=== PATIENT | male | born 1965 | race Two or more races ===

== ENCOUNTER 2025-04-12 17:48 | Inpatient (IN) | payer OTHER, SELFPAY ==
[2025-04-12] VITALS (8 sets, daily range): BP systolic 138–160; BP diastolic 82–114; PULSE 79–125; RESP 16–100; TEMP 36.9–37.4; O2SAT 85–99; BMI 29.2
--- NOTE | 2025-04-12 18:10 | XR_ITS ---
Examination: CT brain head without contrast. 2-D sagittal coronal reconstructions Date and time of exam:April 12, 2025, 1858 hours INDICATIONS: Altered mental status today CTDI: vol (mGy):43.8 DLP: (mGycm):854 Technique: Multiple CT axial sections of the brain have been obtained, 5 mm slice thickness. Contrast has not been administered. 2-D sagittal, coronal reconstructions have been obtained Low dose protocols were performed. One or more of the following dose reduction techniques were used; automated exposure control, adjustment of the mA and/or KV according to patient size, use of iterative reconstruction technique. Findings: No significant ventricular enlargement. Intra-axial or extra-axial hemorrhage density is not seen. No mass effect or midline shift Basal cisterns are not remarkable. Fourth ventricle is midline. Cranial vault intact. Impression: Negative for acute hemorrhage, mass effect or midline shift Advise clinical correlation and follow-up accordingly
[2025-04-12 19:53] LABS: Basophils # (Auto) 0.1 Thou/mm3 (0.0-0.2); Basophils % (Auto) 1 % (0-2.5); Eosinophils # (Auto) 0.0 Thou/mm3 (0.0-0.5); Eosinophils % (Auto) 0 % (0-10); Hematocrit 37.3 % (41.0-53.0); Hemoglobin 13.1 g/dL (13.5-16.0); Immature Granulocytes Auto 0.03 Thou/mm3 (0.00-0.00); Lymphocytes # (Auto) 1.6 Thou/mm3 (1.0-4.8); Lymphocytes % (Auto) 18 % (10-50); Mean Corpuscular HGB Conc 35.1 g/dl (31.0-37.0); Mean Corpuscular Hemoglobin 33.9 pg (25.0-35.0); Mean Corpuscular Volume 97 fL (80-100); Monocytes # (Auto) 1.3 Thou/mm3 (0.0-0.8); Monocytes % (Auto) 16 % (0-12); Neutrophils # (Auto) 5.6 Thou/mm3 (1.8-7.7); Neutrophils % (Auto) 65 % (37-80); Nucleated Red Blood Cell # 0.00 Thou/mm3 (0.00-0.00); Nucleated Red Blood Cell % 0 /100 WBC (0); Platelet Count 172 Thou/mm3 (140-440); RDW Standard Deviation 44.0 fL (35.1-43.9); Red Blood Count 3.86 Miln/mm3 (4.50-5.90); White Blood Count 8.6 Thou/mm3 (3.8-10.6)
[2025-04-12 20:11] LABS: INR 1.2 (0.9-1.3); Partial Thromboplastin Time 29.7 Seconds (22.0-36.0); Prothrombin Time 12.6 Seconds (9.0-12.2)
[2025-04-12 20:16] LABS: Alanine Aminotransferase 33 U/L (10-49); Albumin, Serum 4.1 gm/dL (3.5-5.0); Albumin/Globulin Ratio 1.0 (1.2-2.2); Alcohol, Blood Medical < 3.0 mg/dL (0-10.0); Alkaline Phosphatase 207 U/L (46-116); Anion Gap 13 (7-16); Aspartate Amino Transferase 96 U/L (0-34); BUN/Creatinine Ratio 13 Ratio (12-20); Bilirubin,Total 1.0 mg/dL (0.3-1.2); Blood Urea Nitrogen 8 mg/dL (9-23); Calcium 9.6 mg/dL (8.3-10.6); Calcium (Corrected) 9.6 mg/dL (8.5-10.1); Carbon Dioxide 24.3 mMol/L (20.0-31.0); Chloride 95 mMol/L (98-107); Creatinine (Component) 0.6 mg/dL (0.6-1.3); Estimated Creatinine Clearance 118.7 mL/min (>60); Globulin 4.3 gm/dL (2.3-3.5); Glucose 90 mg/dL (74-106); Magnesium 1.6 mg/dL (1.6-2.6); Osmolality,Calculated 262 (275-295); Potassium 3.6 mMol/L (3.4-5.1); Sodium 132 mMol/L (136-145); Total Protein 8.4 gm/dL (5.7-8.2); eGFR > 60 See Note
[2025-04-12] MEDS: DIAZEPAM INJ 5 MG/ML VIAL 2 ML IVP (20:16)
[2025-04-12] MEDS: SODIUM CHLORIDE 0.9% 1000 ML 1,000 ML 999 ML IV (20:16)
[2025-04-12 21:18] LABS: Collection Type, Urine Clean Catch
[2025-04-12] MEDS: DIAZEPAM INJ 5 MG/ML VIAL 2 ML 10 MG IVP (21:18)
[2025-04-12 21:37] LABS: Amphetamine/Methamp Scrn,U Negative (Negative); Barbiturate Screen,Urine Negative (Negative); Benzodiazepines Screen,Urine Negative (Negative); Benzoylecgonine Screen, Ur Negative (Negative); Bilirubin,Urine Negative (Negative); Blood,Urine Trace (Negative); Clarity,Urine Clear (Clear/Hazy); Color,Urine Colorless (Lt Yel-Yel); Culture Indicated,Urine Not Indicated; Fentanyl Screen,Urine Negative (Negative); Glucose, Urine Negative (Negative); Ketones,Urine Negative (Negative); Leukocyte Esterase,Urine Negative (Negative); Nitrite,Urine Negative (Negative); Opiate Screen,Urine Negative (Negative); PH,Urine 6.5 (5.0-7.0); Protein,Urine Negative (Neg - Trace); RBC,Urine < 1 /hpf (0-3); Specific Gravity,Urine 1.004 (1.001-1.035); Squamous Epithelial Cell,Urine < 1 /hpf (0-5); THC Screen,Urine Negative (Negative); Urobilinogen,Urine Negative mg/dL (0.0-1.0); WBC,Urine 1 /hpf (0-5)
[2025-04-12 21:37] LABS: Thyroid Stimulating Hormone 2.64 uIU/mL (0.55-4.78)
--- NOTE | 2025-04-12 22:27 | PD.EDALCOH ---
ED Alcohol RME/HPI General Chief Complaint: Alcohol Stated Complaint: ALCOHOL WITHDRAW Time Seen by Provider: 04/12/25 18:00 Source: patient Arrival date/time: 04/12/25 17:48 59-year-old male with no known medical history presents to the emergency room with a chief complaint of altered mental status, fusion, tremors. Per EMS the patient has been in detention for the last 2 days and is withdrawing from alcohol. Mode of arrival: ambulatory Limitations: no limitations Related Data Home Medications ?Medication ?Instructions ?Recorded ?Confirmed naproxen 500 mg tablet 500 mg PO Q6H PRN pain 04/13/25 04/13/25 Allergies Allergy/AdvReac Type Severity Reaction Status Date / Time No Known Drug Allergies Allergy Verified 04/12/25 19:55 Review of Systems Review of Systems Systems Reviewed: All systems reviewed, normal except as documented Constitutional Constitutional: Reports system reviewed and no additional complaints, except as documented, Denies fatigue, Denies fever(s), Denies headache(s) and Denies weakness Eyes Eyes: Reports system reviewed and no additional complaints, except as documented, Denies blurry vision and Denies change in vision ENT Ears, Nose, Mouth, and Throat: Reports system reviewed and no additional complaints, except as documented, Denies otalgia, Denies headache(s), Denies nasal congestion, Denies throat swelling and Denies vertigo Cardiovascular Cardiovascular: Reports system reviewed and no additional complaints, except as documented, Denies chest pain, Denies dyspnea and Denies dyspnea on exertion Respiratory Respiratory: Reports system reviewed and no additional complaints, except as documented, Denies chest congestion, Denies cough, Denies dyspnea, Denies dyspnea on exertion and Denies wheezing Gastrointestinal Gastrointestinal: Reports system reviewed and no additional complaints, except as documented, Denies abdominal pain, Denies cramping, Denies nausea and Denies vomiting Genitourinary Genitourinary: Reports system reviewed and no additional complaints, except as documented, Denies dysuria and Denies hematuria Musculoskeletal Musculoskeletal: Reports system reviewed and no additional complaints, except as documented and Denies back pain Integumentary/Breasts Skin/Breast: Reports system reviewed and no additional complaints, except as documented and Denies wounds Neurologic Neurologic: Reports system reviewed and no additional complaints, except as documented, Reports abnormal movements, Reports abnormal speech, Reports behavioral changes, Reports confusion, Denies headache(s), Denies lack of coordination, Reports other visual disturbances, Reports tremor(s), Denies vertigo and Denies weakness Psychiatric Psychiatric: Reports system reviewed and no additional complaints, except as documented, Denies anxiety, Reports auditory hallucinations, Reports behavioral changes, Reports confusion, Denies depression, Reports irritability, Denies paranoia, Denies suicidal ideation and Reports tactile hallucinations Endocrine Endocrine: Reports system reviewed and no additional complaints, except as documented and Denies fatigue Hematologic/Lymphatic Hematologic/Lymphatic: Reports system reviewed and no additional complaints, except as documented and Denies lymphadenopathy Allergic/Immunologic Allergic/Immunologic: Reports system reviewed and no additional complaints, except as documented, Denies throat swelling, Denies urticaria and Denies wheezing ED Exam General Limitations: Present no limitations General appearance: Present alert and in no apparent distress Head Head exam: Present atraumatic Eye Eye exam: Present normal appearance, PERRL and EOMI ENT ENT exam: Present normal exam, normal oropharynx and mucous membranes moist Neck Neck exam: Present normal inspection, full ROM and trachea midline Chest Chest inspection: Present normal inspection and symmetric chest wall rise Respiratory Respiratory exam: Present normal lung sounds bilaterally Cardiovascular Cardiovascular exam: Present regular rate, normal rhythm and normal heart sounds Abdominal Exam Abdominal exam: Present soft and normal bowel sounds Extremities Exam Extremities exam: Present normal inspection and full ROM Back Exam Back exam: Present normal inspection and full ROM Neurological Exam Neurological exam: Present alert, oriented X3 and CN II-XII intact Psychiatric Psychiatric exam: Present normal affect and normal mood Skin Skin exam: Present warm, dry, intact and normal color Course Quality Measures none Orders Category Date Time Status Patient Condition Routine Admission 04/12/25 22:52 Ordered COVID-19 Screening Questionnaire NOW Care 04/12/25 22:23 Completed COVID-19 Screening Questionnaire NOW Care 04/12/25 22:43 Completed Decision to Admit X1 Care 04/12/25 22:23 Completed Decision to Admit X1 Care 04/12/25 22:43 Completed In and Out Catheter X1 Care 04/12/25 20:38 Completed Insert IV NOW Care 04/12/25 20:[address] head/brain wo con Stat Exams 04/12/25 18:10 Completed Alcohol, Blood Medical Stat Lab 04/12/25 19:39 Completed CBC Stat Lab 04/12/25 19:39 Completed CMP [Comprehensive Metabolic Panel] Stat Lab 04/12/25 19:39 Completed Drug Screen,Urine Stat Lab 04/12/25 20:51 Completed Mag [Magnesium] Stat Lab 04/12/25 19:39 Completed PT [Prothrombin Time with INR] Stat Lab 04/12/25 19:39 Completed PTT [Partial Thromboplastin Time] Stat Lab 04/12/25 19:39 Completed Phosphorous Stat Lab 04/12/25 19:39 Completed TSH [Thyroid Stimulating Hormone] Stat Lab 04/12/25 19:34 Completed UA, C/S IF [Urinalysis, C/S if Indicated] Stat Lab 04/12/25 20:51 Completed Acetaminophen Supp [Tylenol Supp] Med 04/12/25 22:52 Active 650 mg AK Q4HR PRN Diazepam Inj [Valium Inj] Med 04/12/25 20:43 Discontinued 10 mg IVP X1 ONE Diazepam Inj [Valium Inj] Med 04/12/25 20:03 Discontinued 5 mg IVP X1 ONE Folic Acid Inj Med 04/12/25 22:39 Discontinued 1 mg IVP X1 ONE Milk Of Magnesia Susp [Mom Susp] Med 04/12/25 22:52 Active 30 ml PO QDAY PRN PHENobarbital Inj 750 mg Med 04/12/25 22:30 Discontinued Sodium Chloride 0.9% [Ns] 50 ml IV X1 PHENobarbital Inj 750 mg Med 04/12/25 21:42 Discontinued Syringe For IV Med- Peds [Syringe Iv Carrier- Peds] 1 ea IV X1 Sodium Chloride 0.9% 1000 ml [Ns] 1,000 ml Med 04/12/25 20:04 Discontinued IV 999 mls/hr Thiamine Inj [Vitamin B-1 Inj] Med 04/12/25 22:39 Discontinued 100 mg IVP X1 ONE Thiamine Inj [Vitamin B-1 Inj] 250 mg Med 04/12/25 22:40 Discontinued Sodium Chloride 0.9% [Ns] 100 ml IV X1 Code Status Routine Oth 04/12/25 22:52 Ordered Oxygen Delivery PRN RT 04/12/25 22:52 Completed Vital Signs Vital signs: Vital Signs Temperature 99.4 F 04/12/25 18:10 Pulse Rate 79 04/12/25 18:10 Respiratory Rate 16 04/12/25 18:10 Blood Pressure 138/82 H 04/12/25 18:10 Pulse Oximetry (%) 97 04/12/25 18:10 Oxygen Delivery Method Room Air 04/12/25 18:10 Discharge Plan Plan Patient Disposition: Admit Acute Care w/in Hospital Problem List Clinical Impression: Delirium tremens Alcohol MDM Narrative MDM Narrative: 59-year-old male with no known medical history presents to the emergency room with a chief complaint of altered mental status, fusion, tremors. Per EMS the patient has been in detention for the last 2 days and is withdrawing from alcohol. Patient is hemodynamically stable Physical examination shows the patient was altered and confused. The patient is alert to his name but does not know where he is. Patient is a GCS of 14. the patient is having tremors, is confused and is having visual and auditory hallucinations. The patient is restrained with handcuffs as he is from detention and was brought due to his confusion and delirium and tremors. According to the EMS the patient is withdrawing from alcohol. The patient has been in detention for the last 2 days and has not drank any alcohol. The patient is currently in delirium tremens. He is having visual and auditory hallucinations he is diaphoretic and he is having episodes of confusion. The patient has been given diazepam with minimal improvement to his symptoms. The patient was then put on phenobarbital with improvement to his symptoms. The patient was admitted. The ICU team, Dr. Ellis, was called they will came down and evaluated the patient and the patient will be admitted to the ICU Patient data External records reviewed:: [facility] previous records Clinical information provided by:: patient Social determinants that could affect healthcare access:: none Patient has the following chronic illnesses:: No chronic illness How is presenting disease/condition affected by chronic disease/condition?: no chronic disease Evaluation data The following diagnostics were reviewed and interpreted by me:: lab results and radiology exam(s) Lab and/or radiology exams considered but not ordered:: Labs and radiology exams considered in order Interpretation Summary: CT head and brain-indings: No significant ventricular enlargement. Intra-axial or extra-axial hemorrhage density is not seen. No mass effect or midline shift Basal cisterns are not remarkable. Fourth ventricle is midline. Cranial vault intact. Impression: Negative for acute hemorrhage, mass effect or midline shift Advise clinical correlation and follow-up accordingly Medications / Prescriptions Medications or Prescriptions considered but not ordered:: Medication given Medication administrations:: Medication Administration History Acetaminophen (Acetaminophen Supp 650 Mg Supp) 650 mg AK Q4HR PRN PRN Reason: PAIN SCALE 1-3 (mild Stop: 05/12/25 22:51 Acetaminophen (Acetaminophen 325 Mg Tablet) 650 mg PO Q4HR PRN PRN Reason: PAIN SCALE 1-3 (mild Stop: 05/14/25 10:40 Last Admin: 04/15/25 05:40 Dose: 650 mg Documented By: Comments: for headache Dextrose (Dextrose 50%-Water Inj 50 Ml Syringe) 50 ml IVP Q6HR PRN PRN Reason: Blood sugar less than 80 Stop: 05/13/25 00:44 Diazepam (Diazepam Inj 5 Mg/Ml Vial 2 Ml) 5 mg IVP Q1HR PRN PRN Reason: CIWA 16-19 Stop: 04/17/25 23:25 Diazepam (Diazepam Inj 5 Mg/Ml Vial 2 Ml) 10 mg IVP Q1HR PRN PRN Reason: CIWA 20-25 Stop: 04/17/25 23:25 Last Admin: 04/13/25 00:17 Dose: 10 mg Documented By: BD Diazepam (Diazepam Inj 5 Mg/Ml Vial 2 Ml) 5 mg IVP Q15M PRN PRN Reason: RASS+1 Stop: 04/17/25 23:25 Diazepam (Diazepam Inj 5 Mg/Ml Vial 2 Ml) 2.5 mg IVP Q2HR PRN PRN Reason: CIWA SCORE 8-13 Stop: 04/18/25 00:42 Folic Acid (Folic Acid Inj 1 Mg/0.2 Ml) 1 mg IVP QDAY [facility] Stop: 05/13/25 08:59 Last Admin: 04/14/25 10:00 Dose: 1 mg Documented By: Admin: 04/13/25 08:49 Dose: 1 mg Documented By: JOAQUIN Heparin Sodium (Porcine) (Heparin Sod Inj 5000 Unit/Ml Vial) 5,000 unit SC Q8HR [facility] Stop: 04/27/25 05:59 Last Admin: 04/15/25 05:25 Dose: 5,000 unit Documented By: Co-signed By: KATHARINA Admin: 04/14/25 22:12 Dose: 5,000 unit Documented By: Co-signed By: CARL Admin: 04/14/25 13:44 Dose: 5,000 unit Documented By: ALEIDA Co-signed By: FARHANA Admin: 04/14/25 06:45 Dose: 5,000 unit Documented By: GERMAINE Co-signed By: NAY Admin: 04/13/25 21:30 Dose: 5,000 unit Documented By: GERMAINE Co-signed By: NAY Admin: 04/13/25 14:03 Dose: 5,000 unit Documented By: Co-signed By: DANIEL Admin: 04/13/25 05:41 Dose: 5,000 unit Documented By: PRUDENCIO Co-signed By: ABRIL Thiamine HCl 500 mg/ Sodium (Chloride) 105 mls @ 210 mls/hr IV TID STEFANIA Stop: 04/20/25 13:59 Last Admin: 04/15/25 05:20 Dose: 210 mls/hr Documented By: Infusion: 04/14/25 22:46 Dose: Infused Documented By: Admin: 04/14/25 22:16 Dose: 210 mls/hr Documented By: Infusion: 04/14/25 14:15 Dose: Infused Documented By: Admin: 04/14/25 13:45 Dose: 210 mls/hr Documented By: Infusion: 04/14/25 07:06 Dose: Infused Documented By: Admin: 04/14/25 06:36 Dose: 210 mls/hr Documented By: Infusion: 04/13/25 21:45 Dose: Infused Documented By: Admin: 04/13/25 21:15 Dose: 210 mls/hr Documented By: Infusion: 04/13/25 14:33 Dose: Infused Documented By: Admin: 04/13/25 14:03 Dose: 210 mls/hr Documented By: Potassium Phosphate (Pot Phos 15 Mmol In Ns 250 Ml) 15 mmol in 250 mls @ 62.5 mls/hr IV X1 ONE Stop: 04/15/25 12:42 Magnesium Sulfate (Magnesium Sulfate Ivpb) 2 gm in 50 mls @ 25 mls/hr IV X1 ONE Stop: 04/15/25 10:42 Last Admin: 04/15/25 09:00 Dose: 25 mls/hr Documented By: LILLIE Magnesium Hydroxide (Milk Of Magnesia Susp 30 Ml Udc) 30 ml PO QDAY PRN PRN Reason: CONSTIPATION Stop: 05/12/25 22:51 Pantoprazole Sodium (Pantoprazole Inj 40 Mg Vial) 40 mg IVP QDAY STEFANIA Stop: 05/12/25 22:59 Last Admin: 04/15/25 09:01 Dose: 40 mg Documented By: Admin: 04/14/25 09:14 Dose: 40 mg Documented By: Admin: 04/13/25 08:48 Dose: 40 mg Documented By: Admin: 04/12/25 23:15 Dose: 40 mg Documented By: BD Phenobarbital Sodium (Phenobarbital Inj 130 Mg/1 Ml Vial) 65 mg IVP BID STEFANIA Stop: 04/29/25 20:59 Discontinued Medications Phenobarbital Sodium 130 mg/ (Sodium Chloride 12 ml) 0 mg IVP Q8H STEFANIA Stop: 04/27/25 07:14 Last Admin: 04/13/25 06:23 Dose: 130 mg Documented By: PRUDENCIO Comments: with 12ml ns flush Phenobarbital Sodium 65 mg/ (Sodium Chloride 12 ml) 0 mg IVP Q8H [facility] Stop: 04/27/25 13:29 Phenobarbital Sodium 65 mg/ (Sodium Chloride 12 ml) 0 mg IVP Q8HR STEFANIA Stop: 04/27/25 21:59 Diazepam (Diazepam Inj 5 Mg/Ml Vial 2 Ml) 5 mg IVP X1 ONE Stop: 04/12/25 20:04 Last Admin: 04/12/25 20:16 Dose: 5 mg Documented By: BD Diazepam (Diazepam Inj 5 Mg/Ml Vial 2 Ml) 10 mg IVP X1 ONE Stop: 04/12/25 20:44 Last Admin: 04/12/25 21:18 Dose: 10 mg Documented By: BD Folic Acid (Folic Acid Inj 1 Mg/0.2 Ml) 1 mg IVP X1 ONE Stop: 04/12/25 22:40 Last Admin: 04/12/25 23:15 Dose: 1 mg Documented By: BD Sodium Chloride (Ns) 1,000 mls @ 999 mls/hr IV .Q1H1M ONE Stop: 04/12/25 21:04 Last Infusion: 04/12/25 23:05 Dose: Infused Documented By: Admin: 04/12/25 20:16 Dose: 999 mls/hr Documented By: BD Phenobarbital Sodium 750 mg/ (Device) 5.7692 mls @ 11.538 mls/hr IV X1 ONE Stop: 04/12/25 21:43 Last Admin: 04/12/25 22:21 Dose: Not Given Documented By: BD Non-Admin Reason: Discontinued Phenobarbital Sodium 750 mg/ (Sodium Chloride) 55.7692 mls @ 334.615 mls/hr IV X1 ONE Stop: 04/12/25 22:39 Last Infusion: 04/12/25 23:16 Dose: Infused Documented By: Admin: 04/12/25 22:48 Dose: 334.615 mls/hr Documented By: BD Thiamine HCl 250 mg/ Sodium (Chloride) 102.5 mls @ 205 mls/hr IV X1 ONE Stop: 04/12/25 23:09 Last Infusion: 04/12/25 23:54 Dose: Infused Documented By: Admin: 04/12/25 23:15 Dose: 205 mls/hr Documented By: BD Dexmedetomidine/Sodium Chloride (Precedex Ivpb) 400 mcg in 100 mls @ 3.629 mls/hr IV .Q24H PRN; Protocol PRN Reason: Per PROTOCOL Stop: 05/12/25 23:25 Last Titration: 04/13/25 10:00 Dose: 0 mcg/kg/hr, 0 mls/hr Documented By: Titration: 04/13/25 09:00 Dose: 0.2 mcg/kg/hr, 3.629 mls/hr Documented By: Titration: 04/13/25 08:00 Dose: 0.4 mcg/kg/hr, 7.258 mls/hr Documented By: Titration: 04/13/25 07:00 Dose: 0.6 mcg/kg/hr, 10.886 mls/hr Documented By: Titration: 04/13/25 06:13 Dose: 0.6 mcg/kg/hr, 10.886 mls/hr Documented By: KAShad Titration: 04/13/25 05:40 Dose: 0.4 mcg/kg/hr, 7.258 mls/hr Documented By: Titration: 04/13/25 05:00 Dose: 0.2 mcg/kg/hr, 3.629 mls/hr Documented By: Titration: 04/13/25 04:00 Dose: 0.2 mcg/kg/hr, 3.629 mls/hr Documented By: Titration: 04/13/25 03:20 Dose: 0.2 mcg/kg/hr, 3.629 mls/hr Documented By: Titration: 04/13/25 03:00 Dose: 0.4 mcg/kg/hr, 7.258 mls/hr Documented By: Titration: 04/13/25 02:00 Dose: 0.4 mcg/kg/hr, 7.258 mls/hr Documented By: Titration: 04/13/25 01:11 Dose: 0.4 mcg/kg/hr, 7.258 mls/hr Documented By: Admin: 04/13/25 00:41 Dose: 0.2 mcg/kg/hr, 3.629 mls/hr Documented By: ALYX Co-signed By: TESSY Magnesium Sulfate (Magnesium Sulfate Ivpb) 4 gm in 50 mls @ 12.5 mls/hr IV X1 ONE Stop: 04/13/25 03:30 Last Admin: 04/13/25 00:04 Dose: 12.5 mls/hr Documented By: ALYX Potassium Chloride (Kcl Ivpb) 10 meq in 100 mls @ 100 mls/hr IV Q1H STEFANIA Stop: 04/13/25 03:30 Last Admin: 04/13/25 03:47 Dose: 100 mls/hr Documented By: Infusion: 04/13/25 03:46 Dose: Infused Documented By: Admin: 04/13/25 02:46 Dose: 100 mls/hr Documented By: Infusion: 04/13/25 02:46 Dose: Infused Documented By: Admin: 04/13/25 01:51 Dose: 100 mls/hr Documented By: Infusion: 04/13/25 01:05 Dose: Infused Documented By: Admin: 04/13/25 00:05 Dose: 100 mls/hr Documented By: ALYX Potassium Chloride (Kcl Ivpb) 10 meq in 100 mls @ 100 mls/hr IV Q1H STEFANIA Stop: 04/13/25 10:20 Last Admin: 04/13/25 10:03 Dose: 100 mls/hr Documented By: Infusion: 04/13/25 09:44 Dose: Infused Documented By: Admin: 04/13/25 08:44 Dose: 100 mls/hr Documented By: JOAQUIN Magnesium Sulfate/Dextrose (Magnesium Sulfate Ivpb) 1 gm in 100 mls @ 100 mls/hr IV X1 ONE Stop: 04/14/25 09:20 Last Admin: 04/14/25 09:14 Dose: 100 mls/hr Documented By: ALEIDA Phenobarbital Sodium (Phenobarbital Inj 130 Mg/1 Ml Vial) 65 mg IVP Q8H STEFANIA Stop: 04/27/25 13:44 Last Admin: 04/13/25 14:10 Dose: Not Given Documented By: Non-Admin Reason: HOLD PER MD PONCE Phenobarbital Sodium (Phenobarbital Inj 130 Mg/1 Ml Vial) 65 mg IVP Q8HR STEFANIA Stop: 04/27/25 21:59 Last Admin: 04/15/25 05:25 Dose: 65 mg Documented By: Admin: 04/14/25 22:13 Dose: 65 mg Documented By: Admin: 04/14/25 13:44 Dose: 65 mg Documented By: Admin: 04/14/25 06:36 Dose: 65 mg Documented By: GERMAINE Comments: 65 mg wasted with PEDRO Mattson Admin: 04/13/25 21:13 Dose: 65 mg Documented By: GERMAINE Comments: 65 MG wasted with Nadiya VASQUEZ Potassium Chloride (Potassium Chloride 20 Meq Tabcr) 40 meq PO X1 ONE Stop: 04/14/25 08:21 Last Admin: 04/14/25 09:13 Dose: 40 meq Documented By: ALEIDA Thiamine HCl (Thiamine Inj 100 Mg/Ml Vial 2 Ml) 100 mg IVP X1 ONE Stop: 04/12/25 22:40 Last Admin: 04/12/25 23:14 Dose: 100 mg Documented By: ALYX Thiamine HCl (Thiamine Inj 100 Mg/Ml Vial 2 Ml) 100 mg IVP BID STEFANIA Stop: 05/13/25 08:59 Last Admin: 04/13/25 08:45 Dose: 100 mg Documented By: JOAQUIN Thiamine HCl (Thiamine Inj 100 Mg/Ml Vial 2 Ml) 500 mg IVP TID [facility] Stop: 05/13/25 13:59 Medication given Consultations Consultation(s) initiated? (list below): No Diagnosis Differential diagnosis alcohol: alcohol withdrawal delirium, hypomagnesemia, alcohol intoxication, alcohol ketoacidosis, alcohol withdrawal syndrome and other (Delirium tremens) Most likely diagnosis given after review of the tests above:: Delirium tremens Admission Indicated Admission indicated?: indicated Admission Request Was there a request for admission?: Yes Admission Attestation Admission request attestation: Discussed case with [Dr. Ellis] from Hospitalist service regarding admission. Discussed patients ED course, exam findings, labs, and radiology results. The Hospitalist [agrees,declines] to accept the patient for admission. Disposition Plan Disposition Plan: Admit
[2025-04-12] MEDS: SODIUM CHLORIDE 0.9% IV (22:48)
[2025-04-12] MEDS: PHENOBARBITAL IV (22:48)
--- NOTE | 2025-04-12 22:54 | XR_ITS ---
Examination: AP chest single view Technique one AP portable upright chest single view Date and time: April 12, 2025, 11:47 PM INDICATIONS: Altered mental status tremors alcohol withdrawal FINDINGS: Normal heart size No pneumonia or pulmonary edema. Mild osteopenia IMPRESSION: No active disease
--- NOTE | 2025-04-12 23:00 | EKG_ITS ---
[facility] Test Date: 2025-04-12 Pat Name: TAMMIE CARDOSO Department: Room: - Gender: Male Loan Clerk: : 1965 Requested By: Nolberto Ellis Order Number: [id number] Reading MD: Nolberto Ellis Measurements Intervals [place] Rate: 91 P: 65 [place]: 151 QRS: 55 QRSD: 80 T: 70 QT: 364 QTc: 448 Interpretive Statements SINUS RHYTHM No previous ECG available for comparison /store/S0/[id number]/[id number]
[2025-04-12 23:08] LABS: Phosphorous 4.3 mg/dL (2.4-5.1)
--- NOTE | 2025-04-12 23:10 | PC.NURSE ---
aware that cant perform ekg as pt is still to restless
[2025-04-12] MEDS: THIAMINE INJ 100 MG/ML VIAL 2 ML IVP (23:14)
[2025-04-12] MEDS: FOLIC ACID INJ 1 MG/0.2 ML IVP (23:15)
[2025-04-12] MEDS: THIAMINE INJ 250 MG in SODIUM CHLORIDE 0.9% 100 ML 205 MG IV (23:15)
--- NOTE | 2025-04-12 23:31 | ESHP_ITS ---
<Statement entered by Filiberto Fulton MD - 04/13/25 12:10> I have discussed and was present for the essential components of the history, physical examination, diagnosis, and treatment plan with the resident. I agree with the patient's care as documented by the resident and amended herein by me. Filiberto Fulton MD FACP. Total critical care time: Approximately?45?minutes Due to a high probability of clinically significant, life threatening deterioration, the patient required my highest level of preparedness to intervene emergently and I personally spent this critical care time directly and personally managing the patient. This critical care time included obtaining a history; examining the patient; pulse oximetry; ordering and review of studies; arranging urgent treatment with development of a management plan; evaluation of patient's response to treatment; frequent reassessment; and, discussions with other providers. This critical care time was performed to assess and manage the high probability of imminent, life-threatening deterioration that could result in multi-organ failure. It was exclusive of separately billable procedures and treating other patients and teaching time. Documentation for date of: 04/12/25 HPI History of Present Illness History of present illness: The patient is a 59-year-old male with past medical history significant for alcohol abuse disorder, with unknown other medical history, presented to ED from senior living by EMS with chief complaint of decreased mental status, confusion and tremors. According to the officer from senior living, the patient was withdrawing from alcohol for past 2 days. Unable to obtain the patient's last drink time and date. Patient is not responding verbally, and is not answering questions appropriately. Initial CIWA score was 18, followed by 20. In the ED his vitals were significant for blood pressure 138/82, pulse 79, RR 16, temperature 99.4, saturating 97% on room air. Labs revealed hemoglobin 13.1, PT 12.6, sodium 132, chloride 95, BUN/creatinine 8/0.6, AST/ALT/ALP 96/33/207, TSH 2.64, UA revealed negative urinalysis, U tox was negative for any drug or alcohol. CT head was negative for acute hemorrhage, mass effect or midline shift, chest x-ray revealed no active disease, EKG as interpreted by me revealed sinus rhythm with QTc 448 MS. The patient was given diazepam 5 Mg IVP x 1, 10 Mg IVP x 1, thiamine 100 Mg IVP x 1, normal saline 1 L IV bolus, phenobarbital 750 Mg IV x 1, folic acid 1 Mg IV x 1, pantoprazole 40 Mg IV x 1, magnesium sulfate 4 g IV x 1, potassium chloride 40 mEq x 1 and was admitted to ICU for further management of alcohol withdrawal leading to delirium tremens. PMH: Unobtainable Surgical history: Unobtainable Family history: Unobtainable Social history: Presented from senior living, no further social history could be obtained Medications: To be reconciled Allergies: No known allergies Review of Systems Review of Systems ROS Unobtainable: unobtainable due to mental status Narrative Review of Systems: General: No acute distress, alert and oriented x 0, noncoherent speech, severe shaking in limbs HEENT: Moist mucous membranes, oropharynx clear Neck: Supple, No masses, No JVD CVS: S1S2 Regular rate and rhythm, No murmurs, rubs or gallops Lungs: Clear to auscultation with no accessory use, no wheeze no rhonchi Abd: Soft, NT/ND, +BS, no organomegaly Ext: No edema, warm and well perfused Skin: No rash Psych: Seems to be in auditory hallucinations Exam Vital Signs Temp Pulse Resp BP Pulse Ox O2 Del Method 98.5 F 120 H 16 146/94 H 99 Room Air 04/12/25 22:37 04/12/25 23:06 04/12/25 23:06 04/12/25 22:37 04/12/25 22:37 04/12/25 22:37 Results: Labs 04/13/25 06:03 04/13/25 06:55 Labs: Short CBC 04/12/25 Range/Units 19:39 WBC 8.6 (3.8-10.6) Thou/mm3 Hgb 13.1 L (13.5-16.0) g/dL Hct 37.3 L (41.0-53.0) % Plt Count 172 (140-440) Thou/mm3 BMP 04/12/25 19:39 Sodium 132 L Potassium 3.6 Chloride 95 L Carbon Dioxide 24.3 BUN 8 L Creatinine 0.6 Glucose 90 Calcium 9.6 Liver Function 04/12/25 Range/Units 19:39 Total Bilirubin 1.0 (0.3-1.2) mg/dL AST 96 H (0-34) U/L ALT 33 (10-49) U/L Alkaline Phosphatase 207 H (46-116) U/L Albumin 4.1 (3.5-5.0) gm/dL Urine 04/12/25 Range/Units 20:51 Urine Color Colorless A (Lt Yel-Yel) Urine Clarity Clear (Clear/Hazy) Urine pH 6.5 (5.0-7.0) Ur Specific [place] 1.004 (1.001-1.035) Urine Protein Negative (Neg - Trace) Urine Glucose (UA) Negative (Negative) Quality Measures Quality Measures none Medications Home Medications and Allergies Allergies Allergy/AdvReac Type Severity Reaction Status Date / Time No Known Drug Allergies Allergy Verified 04/12/25 19:55 Visit Medications Acetaminophen (Acetaminophen Supp 650 Mg Supp) 650 mg SD Q4HR PRN PRN Reason: PAIN SCALE 1-3 (mild Stop: 05/12/25 22:51 Phenobarbital Sodium 130 mg/ (Sodium Chloride 12 ml) 0 mg IVP Q8H [facility] Stop: 04/27/25 07:14 Diazepam (Diazepam Inj 5 Mg/Ml Vial 2 Ml) 5 mg IVP Q1HR PRN PRN Reason: CIWA 16-19 Stop: 04/17/25 23:25 Diazepam (Diazepam Inj 5 Mg/Ml Vial 2 Ml) 10 mg IVP Q1HR PRN PRN Reason: CIWA 20- Stop: 04/17/25 23:25 Diazepam (Diazepam Inj 5 Mg/Ml Vial 2 Ml) 5 mg IVP Q15M PRN PRN Reason: RASS+1 Stop: 04/17/25 23:25 Folic Acid (Folic Acid Inj 1 Mg/0.2 Ml) 1 mg IVP QDAY [facility] Stop: 05/13/25 08:59 Heparin Sodium (Porcine) (Heparin Sod Inj 5000 Unit/Ml Vial) 5,000 unit SC Q8HR [facility] Stop: 04/27/25 05:59 Dexmedetomidine/Sodium Chloride (Precedex Ivpb) 400 mcg in 100 mls @ 3.629 mls/hr IV .Q24H PRN; Protocol PRN Reason: Per PROTOCOL Stop: 05/12/25 23:25 Magnesium Sulfate (Magnesium Sulfate Ivpb) 4 gm in 50 mls @ 12.5 mls/hr IV X1 ONE Stop: 04/13/25 03:30 Potassium Chloride (Kcl Ivpb) 10 meq in 100 mls @ 100 mls/hr IV Q1H [facility] Stop: 04/13/25 03:30 Magnesium Hydroxide (Milk Of Magnesia Susp 30 Ml Udc) 30 ml PO QDAY PRN PRN Reason: CONSTIPATION Stop: 05/12/25 22:51 Pantoprazole Sodium (Pantoprazole Inj 40 Mg Vial) 40 mg IVP QDAY [facility] Stop: 05/12/25 22:59 Last Admin: 04/12/25 23:15 Dose: 40 mg Thiamine HCl (Thiamine Inj 100 Mg/Ml Vial 2 Ml) 100 mg IVP BID [facility] Stop: 05/13/25 08:59 Discontinued Medications Diazepam (Diazepam Inj 5 Mg/Ml Vial 2 Ml) 5 mg IVP X1 ONE Stop: 04/12/25 20:04 Last Admin: 04/12/25 20:16 Dose: 5 mg Diazepam (Diazepam Inj 5 Mg/Ml Vial 2 Ml) 10 mg IVP X1 ONE Stop: 04/12/25 20:44 Last Admin: 04/12/25 21:18 Dose: 10 mg Folic Acid (Folic Acid Inj 1 Mg/0.2 Ml) 1 mg IVP X1 ONE Stop: 04/12/25 22:40 Last Admin: 04/12/25 23:15 Dose: 1 mg Sodium Chloride (Ns) 1,000 mls @ 999 mls/hr IV .Q1H1M ONE Stop: 04/12/25 21:04 Last Infusion: 04/12/25 23:05 Dose: Infused Phenobarbital Sodium 750 mg/ (Device) 5.7692 mls @ 11.538 mls/hr IV X1 ONE Stop: 04/12/25 21:43 Last Admin: 04/12/25 22:21 Dose: Not Given Phenobarbital Sodium 750 mg/ (Sodium Chloride) 55.7692 mls @ 334.615 mls/hr IV X1 ONE Stop: 04/12/25 22:39 Last Infusion: 04/12/25 23:16 Dose: Infused Thiamine HCl 250 mg/ Sodium (Chloride) 102.5 mls @ 205 mls/hr IV X1 ONE Stop: 04/12/25 23:09 Last Admin: 04/12/25 23:15 Dose: 205 mls/hr Thiamine HCl (Thiamine Inj 100 Mg/Ml Vial 2 Ml) 100 mg IVP X1 ONE Stop: 04/12/25 22:40 Last Admin: 04/12/25 23:14 Dose: 100 mg Assessment & Plan Plan The patient is a 59-year-old male with past medical history significant for alcohol abuse disorder, with unknown other medical history, presented to ED from senior living by EMS with chief complaint of decreased mental status, confusion and tremors. The patient is admitted to ICU for further management of alcohol withdrawal leading to delirium tremens. Neuro: #Acute encephalopathy 2/ #Alcohol withdrawal, and #Delirium tremens Patient presented from senior living, has been withdrawing for past 2 days in senior living, and presented with confusion, decreased mental status, and tremors U tox negative for any drug abuse Head CT negative for acute hemorrhage, mass effect or midline shift Received 750 Mg IV phenobarbital x 1 in the ED -Phenobarbital 130 Mg IV every 8 hourly, will taper down the dose as tolerated - Started on CIWA protocol with diazepam -Thiamine IV 100 Mg twice daily - Folic acid 1 Mg daily - N.p.o. for now - Aspiration precaution CVS: - No acute issues Pulmonology: - No acute issues GI: #Mild transaminitis Likely secondary to alcohol abuse disorder, presented with AST/ALT/ALP 96/33/207 - Monitor liver function test daily Renal: #Mild hypoosmolar hyponatremia Likely hypovolemic in the setting of withdrawing for past 2 days - Patient received 1 L of normal saline in the ED - Daily a.m. labs for BMP Endocrinology: - No acute issue Hematology: #Mild normocytic anemia Likely nutritional deficiency - Continue with folic acid daily - Follow-up as an outpatient ID: - No acute issues MSK: - No acute issues Skin: - No acute issues Psych: - Seem to be in auditory hallucination - Continue to treat underlying alcohol withdrawal Health maintenance: Dispo: Patient admitted to ICU for further management of delirium treatments Diet: N.p.o. Lines: Peripheral lines Sedatives: Precedex drip DVT prophylaxis: Subcu heparin CODE STATUS: Full code The patient's management plan was discussed with my attending physician MD Nolberto Fulton MD, PGY3
[2025-04-13] VITALS (71 sets, daily range): BP systolic 77–156; BP diastolic 49–98; PULSE 51–107; RESP 12–99; TEMP 2.9–37.3; O2SAT 89–100; BMI 29.0
[2025-04-13] MEDS: Magnesium Sulfate 4 GM Ivpb 4 GM/50 ML BAG IV (00:04)
[2025-04-13] MEDS: POTASSIUM CHL 10 mEq IVPB 10 MEQ/100 ML BAG 100 MEQ IV ×6 (00:05→10:03)
[2025-04-13] MEDS: DIAZEPAM INJ 5 MG/ML VIAL 2 ML 10 MG IVP (00:17)
--- NOTE | 2025-04-13 00:35 | PC.NURSE ---
pt is alert and calm pt is resting at this time holding precedex
[2025-04-13] MEDS: DEXMEDETOMIDINE 400 MCG IVPB 400 MCG/100 ML BAG IV (00:41)
[2025-04-13] MEDS: HEPARIN SOD INJ 5000 UNIT/ML VIAL SC ×3 (05:41→21:30)
[2025-04-13] MEDS: PHENobarbital Inj 130 MG, SODIUM CHLORIDE 0.9% FLUSH 12 ML IVP (06:23)
[2025-04-13 06:33] LABS: Basophils # (Auto) 0.0 Thou/mm3 (0.0-0.2); Basophils % (Auto) 1 % (0-2.5); Eosinophils # (Auto) 0.0 Thou/mm3 (0.0-0.5); Eosinophils % (Auto) 0 % (0-10); Hematocrit 44.7 % (41.0-53.0); Hemoglobin 15.2 g/dL (13.5-16.0); Immature Granulocytes Auto 0.01 Thou/mm3 (0.00-0.00); Lymphocytes # (Auto) 0.7 Thou/mm3 (1.0-4.8); Lymphocytes % (Auto) 14 % (10-50); Mean Corpuscular HGB Conc 34.0 g/dl (31.0-37.0); Mean Corpuscular Hemoglobin 33.9 pg (25.0-35.0); Mean Corpuscular Volume 100 fL (80-100); Monocytes # (Auto) 0.9 Thou/mm3 (0.0-0.8); Monocytes % (Auto) 18 % (0-12); Neutrophils # (Auto) 3.4 Thou/mm3 (1.8-7.7); Neutrophils % (Auto) 67 % (37-80); Nucleated Red Blood Cell # 0.00 Thou/mm3 (0.00-0.00); Nucleated Red Blood Cell % 0 /100 WBC (0); Platelet Count 139 Thou/mm3 (140-440); RDW Standard Deviation 45.1 fL (35.1-43.9); Red Blood Count 4.49 Miln/mm3 (4.50-5.90); White Blood Count 5.0 Thou/mm3 (3.8-10.6)
[2025-04-13 07:55] LABS: Alanine Aminotransferase 31 U/L (10-49); Albumin, Serum 3.8 gm/dL (3.5-5.0); Albumin/Globulin Ratio 1.1 (1.2-2.2); Alkaline Phosphatase 180 U/L (46-116); Anion Gap 13 (7-16); Aspartate Amino Transferase 99 U/L (0-34); BUN/Creatinine Ratio 13 Ratio (12-20); Bilirubin,Total 1.4 mg/dL (0.3-1.2); Blood Urea Nitrogen 8 mg/dL (9-23); Calcium 8.9 mg/dL (8.3-10.6); Calcium (Corrected) 9.1 mg/dL (8.5-10.1); Carbon Dioxide 24.9 mMol/L (20.0-31.0); Chloride 98 mMol/L (98-107); Creatinine (Component) 0.6 mg/dL (0.6-1.3); Estimated Creatinine Clearance 115.2 mL/min (>60); Globulin 3.4 gm/dL (2.3-3.5); Glucose 80 mg/dL (74-106); Magnesium 2.0 mg/dL (1.6-2.6); Osmolality,Calculated 269 (275-295); Phosphorous 3.6 mg/dL (2.4-5.1); Potassium 3.4 mMol/L (3.4-5.1); Sodium 136 mMol/L (136-145); Total Protein 7.2 gm/dL (5.7-8.2); eGFR > 60 See Note
[2025-04-13] MEDS: THIAMINE INJ 100 MG/ML VIAL 2 ML IVP (08:45)
[2025-04-13] MEDS: FOLIC ACID INJ 1 MG/0.2 ML IVP (08:49)
[2025-04-13] MEDS: THIAMINE INJ 500 MG in SODIUM CHLORIDE 0.9% 100 ML 210 MG IV ×2 (14:03→21:15)
--- NOTE | 2025-04-13 15:21 | ESPR_ITS ---
Documentation for date of: 04/13/25 Subjective Subjective Interval history: 04/13/2025 No acute overnight events. Precedex drip was stopped at 6 AM today. Patient received phenobarbital 130 mg at 6:23 AM. The next phenobarbital dose is 65 mg at 8 PM. Patient is alert and oriented x 2 however confused. Patient mentioned that he last drank 1 week ago and the last thing he remembers is being at his house and going to bed. He does not remember going to court yesterday and does not remember admission to hospital. He mentions that he drinks 4-5 beers every single day. Patient is having visual hallucinations and mentions that he sees cats in the room and is having tactile hallucinations and says that snakes are crawling on him patient says he has no medical problems and does not take any medications. Patient is stable and ready to be downgraded to the medical floor to for continued monitoring alcohol withdrawal. Exam Vital Signs Temp Pulse Resp BP Pulse Ox O2 Del Method O2 Flow Rate 98.3 F 56 L 16 106/76 99 Room Air 2 04/13/25 12:00 04/13/25 13:30 04/13/25 13:30 04/13/25 13:30 04/13/25 13:30 04/13/25 06:00 04/13/25 04:15 Narrative Exam General: No acute distress, alert and oriented x 2, [place]-speaking, no tremors HEENT: Moist mucous membranes, oropharynx clear, no nystagmus noted Neck: Supple, No masses, No JVD. CVS: S1+S2. Regular rate and rhythm. No murmurs, rubs or gallops. Lungs: Clear to auscultation with no accessory use, no wheeze no rhonchi Abd: Soft, NT/ND, +BS, no organomegaly Ext: No edema, warm and well perfused Skin: No rash. Bilateral lower extremity bruises below the knee. Psych: Visual and tactile hallucinations Objective Labs 04/16/25 04:51 04/16/25 04:51 Labs: Laboratory Results - last 24 hr 04/12/25 04/12/25 04/12/25 19:34 19:39 20:51 WBC 8.6 RBC 3.86 L Hgb 13.1 L Hct 37.3 L MCV 97 MCH 33.9 MCHC 35.1 RDW Std Deviation 44.0 H Plt Count 172 Neut % (Auto) 65 Lymph % (Auto) 18 [place] % (Auto) 16 H Eos % (Auto) 0 Baso % (Auto) 1 Neut # (Auto) 5.6 Lymph # (Auto) 1.6 [place] # (Auto) 1.3 H Eos # (Auto) 0.0 Baso # (Auto) 0.1 Immature Gran # (Auto) 0.03 H Absolute Nucleated RBC 0.00 Immature Gran % 0 Nucleated RBC % 0 PT 12.6 H INR 1.2 APTT 29.7 Sodium 132 L Potassium 3.6 Chloride 95 L Carbon Dioxide 24.3 Anion Gap 13 BUN 8 L Creatinine 0.6 Estim Creat Clear Calc 118.7 eGFR > 60 BUN/Creatinine Ratio 13 Glucose 90 Calculated Osmolality 262 L Calcium 9.6 Corrected Calcium 9.6 Phosphorus 4.3 Magnesium 1.6 Total Bilirubin 1.0 AST 96 H ALT 33 Alkaline Phosphatase 207 H Total Protein 8.4 H Albumin 4.1 Globulin 4.3 H Albumin/Globulin Ratio 1.0 L TSH 2.64 Ur Collection Type Clean Catch Urine Color Colorless A Urine Clarity Clear Urine pH 6.5 Ur Specific [place] 1.004 Urine Protein Negative Urine Glucose (UA) Negative Urine Ketones Negative Urine Blood Trace Urine Nitrite Negative Urine Bilirubin Negative Urine Urobilinogen (Auto) Negative Ur Leukocyte Esterase Negative Urine RBC < 1 Urine WBC 1 Ur Squamous Epith Cells < 1 Urine Bacteria None Ur Culture Indicated? Not Indicated Urine Opiates Screen Negative Urine Fentanyl Screen Negative Ur Barbiturates Screen Negative U Amphetamin/Meth Scrn Negative U Benzodiazepines Scrn Negative U Cocaine Metab Screen Negative U Marijuana (THC) Screen Negative Ethyl Alcohol < 3.0 04/13/25 04/13/25 06:03 06:55 WBC 5.0 D RBC 4.49 L Hgb 15.2 D Hct 44.7 MCV 100 MCH 33.9 MCHC 34.0 RDW Std Deviation 45.1 H Plt Count 139 L D Neut % (Auto) 67 Lymph % (Auto) 14 [place] % (Auto) 18 H Eos % (Auto) 0 Baso % (Auto) 1 Neut # (Auto) 3.4 Lymph # (Auto) 0.7 L [place] # (Auto) 0.9 H Eos # (Auto) 0.0 Baso # (Auto) 0.0 Immature Gran # (Auto) 0.01 H Absolute Nucleated RBC 0.00 Immature Gran % 0 Nucleated RBC % 0 PT INR APTT Sodium 136 Potassium 3.4 Chloride 98 Carbon Dioxide 24.9 Anion Gap 13 BUN 8 L Creatinine 0.6 Estim Creat Clear Calc 115.2 eGFR > 60 BUN/Creatinine Ratio 13 Glucose 80 Calculated Osmolality 269 L Calcium 8.9 Corrected Calcium 9.1 Phosphorus 3.6 Magnesium 2.0 Total Bilirubin 1.4 H AST 99 H ALT 31 Alkaline Phosphatase 180 H D Total Protein 7.2 Albumin 3.8 Globulin 3.4 Albumin/Globulin Ratio 1.1 L TSH Ur Collection Type Urine Color Urine Clarity Urine pH Ur Specific [place] Urine Protein Urine Glucose (UA) Urine Ketones Urine Blood Urine Nitrite Urine Bilirubin Urine Urobilinogen (Auto) Ur Leukocyte Esterase Urine RBC Urine WBC Ur Squamous Epith Cells Urine Bacteria Ur Culture Indicated? Urine Opiates Screen Urine Fentanyl Screen Ur Barbiturates Screen U Amphetamin/Meth Scrn U Benzodiazepines Scrn U Cocaine Metab Screen U Marijuana (THC) Screen Ethyl Alcohol Quality Measures Quality Measures none Assessment & Plan Assessment Current Active Medications: Generic Name Dose Route Start Last Admin Trade Name Freq PRN Reason Stop Dose Admin Acetaminophen 650 mg 04/12/25 22:52 Acetaminophen Supp 650 Mg Supp GA 05/12/25 22:51 Q4HR PRN PAIN SCALE 1-3 (mild Dextrose 50 ml 04/13/25 00:45 Dextrose 50%-Water Inj 50 Ml Syringe IVP 05/13/25 00:44 Q6HR PRN Blood sugar less than 80 Diazepam 5 mg 04/12/25 23:26 Diazepam Inj 5 Mg/Ml Vial 2 Ml IVP 04/17/25 23:25 Q1HR PRN CIWA 16-19 Diazepam 10 mg 04/12/25 23:26 04/13/25 00:17 Diazepam Inj 5 Mg/Ml Vial 2 Ml IVP 04/17/25 23:25 10 mg Q1HR PRN Administration CIWA 20-25 Diazepam 5 mg 04/12/25 23:26 Diazepam Inj 5 Mg/Ml Vial 2 Ml IVP 04/17/25 23:25 Q15M PRN RASS+1 Diazepam 2.5 mg 04/13/25 00:43 Diazepam Inj 5 Mg/Ml Vial 2 Ml IVP 04/18/25 00:42 Q2HR PRN CIWA SCORE 8-13 Folic Acid 1 mg 04/13/25 09:00 04/13/25 08:49 Folic Acid Inj 1 Mg/0.2 Ml IVP 05/13/25 08:59 1 mg QDAY STEF[facility] Administration Heparin Sodium (Porcine) 5,000 unit 04/13/25 06:00 04/13/25 14:03 Heparin Sod Inj 5000 Unit/Ml Vial SC 04/27/25 05:59 5,000 unit Q8HR [facility] Administration Dexmedetomidine/Sodium Chloride 400 mcg in 100 mls @ 3.629 mls/hr 04/12/25 23:26 04/13/25 10:00 Precedex Ivpb IV 05/12/25 23:25 0 mcg/kg/hr .Q24H PRN 0 mls/hr Per PROTOCOL Titration Protocol 0.2 MCG/KG/HR Thiamine HCl 500 mg/ Sodium 105 mls @ 210 mls/hr 04/13/25 14:00 04/13/25 14:03 Chloride IV 04/20/25 13:59 210 mls/hr TID STEFANIA Administration Magnesium Hydroxide 30 ml 04/12/25 22:52 Milk Of Magnesia Susp 30 Ml Udc PO 05/12/25 22:51 QDAY PRN CONSTIPATION Pantoprazole Sodium 40 mg 04/12/25 23:00 04/13/25 08:48 Pantoprazole Inj 40 Mg Vial IVP 05/12/25 22:59 40 mg QDAY STEF[facility]IA Administration Phenobarbital Sodium 65 mg 04/13/25 22:00 Phenobarbital Inj 130 Mg/1 Ml Vial IVP 04/27/25 21:59 Q8HR ST[facility] Plan Summary: 59-year-old male with past medical history significant for alcohol use disorder, with unknown other medical history, presented to ED from long-term by EMS with chief complaint of decreased mental status, confusion and tremors. The patient is admitted to ICU for further management of alcohol withdrawal leading to delirium tremens. ELECTRONICS MAINTENANCE TECHNICIAN: #Acute encephalopathy 2/2 #Alcohol withdrawal, and #Delirium tremens Patient presented from long-term, has been withdrawing for past 2 days in long-term, and presented with confusion, decreased mental status, and tremors Urine Alcohol level <3 U tox negative for any drugs Head CT negative for acute hemorrhage, mass effect or midline shift Received 750 mg loading dose IV phenobarbital x 1 in the ED, then received 130 mg IV at 6:23AM Initial CIWA 18 and peaked at 20 Most recent CIWA score 0 at 4PM Plan: - Continue CIWA protocol with diazepam - Phenobarbital 65 mg every 8 hours, next dose at 8 PM, taper as appropriate. - Thiamine IV 500mg TID for 3 days for prevention of Wernicke's Encephalopathy as unaware of how much the patient has been drinking - Folic acid 1 mg daily - N.p.o. for now - Aspiration precaution CVS: No active issues. PULM: No active issues. GI: #Mild transaminitis Likely secondary to alcohol use disorder No abdominal pain at present AST 99 ALT 31 ALP 180 Plan: - Monitor liver function test daily - If LFTs worsening and patient has abdo pain, do abdominal US NEPHRO: No active issues. ENDO: No acute issue. HEME: No active issues. ID: No acute issues. MSK: No active issues. Health maintenance: Dispo: Patient downgraded to medical floor for management of alcohol withdrawal Diet: N.p.o. Lines: Peripheral lines DVT prophylaxis: Subcu heparin CODE STATUS: Full code Case discussed with my attending Dr. Blayne Vásquez MD PGY-1 Attending Provider Attestation/Addendum Patient seen and examined with the above resident, George Vásquez MD. I agree with the findings, assessment, and plan of care as document except for any differences below. Patient admitted overnight with delirium tremens and severe alcohol withdrawal syndrome. He was placed on Precedex drip. We did load him with phenobarbital and were able to wean off of Precedex completely early this morning. Patient should continue on phenobarbital taper with as needed benzodiazepines if his CIWA score continues to be elevated. Patient continues to have tactile hallucinations predominantly though he continues show with dynamic mental stability to be transition to [facility] for ongoing management prior to discharge. There is mild alcoholic hepatitis that does not warrant treatment with steroids at this point. Supportive care with appropriate folate and thiamine supplementation is also ongoing. Patient should remain n.p.o. until his mentation is adequate. Head of bed evaluation seizure precautions remain in place in the coming 24 to 48 hours. Total critical care time: I personally spent 40 minutes for review of physiologic parameters, directing plan of care throughout the day, coordination of care with other specialties, and counseling patient at bedside. This is exclusive of time spent teaching hospital performing any separate billable procedures. Patient remains at significant risk for further morbidity and mortality warranting close monitoring and care only available in the ICU. Critical care services required for severe alcohol withdrawal syndrome/delirium tremens, mild alcoholic hepatitis.
--- NOTE | 2025-04-13 17:00 | PC.SS ---
AUTOMATION ANALYST conducted bedside contact with the patient. At bedside with patient was [facility]'s Officer. AUTOMATION ANALYST informed by office that upon patient's medical clearance, patient will be returned to [facility]. Office informed AUTOMATION ANALYST that patient's family is not be notified of patient's presence at hospital. Patient presented to ED from longterm by EMS with chief complaint of decreased mental status, confusion and tremors. According to the officer from longterm, the patient was withdrawing from alcohol for past 2 days. [facility] protocol in place.
--- NOTE | 2025-04-13 17:17 | ESPR_ITS ---
<Statement entered by Kevin Mas MD - 04/15/25 15:15> I reviewed above note and agree with findings and plans. I have also personally examined the patient with medicine team and went over assessment and plan with medical team including physician/internist and resident physician. <Statement entered by Forest Chahal MD - 04/14/25 18:00> Patient was examined and case was reviewed with team including attending physician. Note reviewed, I agree with most of its contents and agree with the patient's care. Sign out received by ICU team. Patient seen and evaluated at the bedside. Current CIWA ~8-10. Currently on phenobarbital and CIWA protocol for alcohol withdrawal. We will continue with C IWA and tapering phenobarbital. Forest Chahal MD PGY-2 Documentation for date of: 04/13/25 Subjective Subjective Interval history: 59-year-old male with no known prior medical history presented to the ED on 04/12 from senior living with altered mental status, confusion, and tremors. Per the accompanying officer, the patient had been experiencing symptoms consistent with alcohol withdrawal for approximately two days. In the ED, the patient was non-verbal and exhibited significant signs of withdrawal, with CIWA scores initially 18, later increasing to 20. He was admitted to the ICU for management of alcohol withdrawal syndrome, progressing to delirium tremens. ED Course: -Initial vitals: BP 138/82, HR 79, RR 16, T 99.4F, O2 sat 97% on room air. -Labs: hemoglobin 13.1 (L); PT 12.6 (H), INR 1.2, PTT 29.7; sodium 132 (L), potassium 3.4, chloride 95 (L), glucose 90, AST 96 (H), ALT 33, ALP 207 (H), TSH 2.64. UA rnegative. U tox negative for any drug or alcohol. -Imaging: CT head was negative for acute hemorrhage, mass effect or midline shift, chest x-ray revealed no active disease -In the ED, patient was given diazepam 5 Mg IVP x 1, 10 Mg IVP x 1, thiamine 100 Mg IVP x 1, normal saline 1 L IV bolus, phenobarbital 750 Mg IV x 1, folic acid 1 Mg IV x 1, pantoprazole 40 Mg IV x 1, magnesium sulfate 4 g IV x 1, potassium chloride 40 mEq x 1. In the ICU: no acute overnight events. Precedex drip was stopped at 6 AM on 04/13. Patient received phenobarbital 130 mg at 6:23 AM. The next phenobarbital dose is 65 mg at 8 PM. Per chart review, patient had visual hallucinations and tactile hallucinations. Patient is clinically stable and has been downgraded to the medical floor for continued monitoring of alcohol withdrawal. Plan to gradually taper phenobarbital as symptoms improve, with ongoing CIWA assessments per protocol. Exam Vital Signs Temp Pulse Resp BP Pulse Ox O2 Del Method O2 Flow Rate 37.3 F L 64 18 130/83 98 Room Air 2 04/13/25 14:00 04/13/25 17:15 04/13/25 17:15 04/13/25 17:15 04/13/25 17:15 04/13/25 06:00 04/13/25 04:15 Narrative Exam Physical Exam General: Awake and in no acute distress. Non-toxic appearing. HEENT: Normocephalic, atraumatic, mucous membranes moist. No nystagmus noted. Heart: Regular rate and rhythm, no murmurs. Lungs: Clear to auscultation with no wheezing or crackles. Abdomen: Soft, nondistended, nontender. No guarding or rebound tenderness. Neurologic: Alert and oriented x3, no gross neurological deficit, and patient able to move all 4 extremities. Extremities: No edema. Bilateral upper extremities with tremors. Skin: Multiple bruises and scabs noted on bilateral lower extremities. Objective Labs 04/13/25 06:03 04/13/25 06:55 Labs: Laboratory Results - last 24 hr 04/12/25 04/12/25 04/12/25 19:34 19:39 20:51 WBC 8.6 RBC 3.86 L Hgb 13.1 L Hct 37.3 L MCV 97 MCH 33.9 MCHC 35.1 RDW Std Deviation 44.0 H Plt Count 172 Neut % (Auto) 65 Lymph % (Auto) 18 Luna % (Auto) 16 H Eos % (Auto) 0 Baso % (Auto) 1 Neut # (Auto) 5.6 Lymph # (Auto) 1.6 Luna # (Auto) 1.3 H Eos # (Auto) 0.0 Baso # (Auto) 0.1 Immature Gran # (Auto) 0.03 H Absolute Nucleated RBC 0.00 Immature Gran % 0 Nucleated RBC % 0 PT 12.6 H INR 1.2 APTT 29.7 Sodium 132 L Potassium 3.6 Chloride 95 L Carbon Dioxide 24.3 Anion Gap 13 BUN 8 L Creatinine 0.6 Estim Creat Clear Calc 118.7 eGFR > 60 BUN/Creatinine Ratio 13 Glucose 90 Calculated Osmolality 262 L Calcium 9.6 Corrected Calcium 9.6 Phosphorus 4.3 Magnesium 1.6 Total Bilirubin 1.0 AST 96 H ALT 33 Alkaline Phosphatase 207 H Total Protein 8.4 H Albumin 4.1 Globulin 4.3 H Albumin/Globulin Ratio 1.0 L TSH 2.64 Ur Collection Type Clean Catch Urine Color Colorless A Urine Clarity Clear Urine pH 6.5 Ur Specific Kimberly 1.004 Urine Protein Negative Urine Glucose (UA) Negative Urine Ketones Negative Urine Blood Trace Urine Nitrite Negative Urine Bilirubin Negative Urine Urobilinogen (Auto) Negative Ur Leukocyte Esterase Negative Urine RBC < 1 Urine WBC 1 Ur Squamous Epith Cells < 1 Urine Bacteria None Ur Culture Indicated? Not Indicated Urine Opiates Screen Negative Urine Fentanyl Screen Negative Ur Barbiturates Screen Negative U Amphetamin/Meth Scrn Negative U Benzodiazepines Scrn Negative U Cocaine Metab Screen Negative U Marijuana (THC) Screen Negative Ethyl Alcohol < 3.0 04/13/25 04/13/25 06:03 06:55 WBC 5.0 D RBC 4.49 L Hgb 15.2 D Hct 44.7 MCV 100 MCH 33.9 MCHC 34.0 RDW Std Deviation 45.1 H Plt Count 139 L D Neut % (Auto) 67 Lymph % (Auto) 14 Luna % (Auto) 18 H Eos % (Auto) 0 Baso % (Auto) 1 Neut # (Auto) 3.4 Lymph # (Auto) 0.7 L Luna # (Auto) 0.9 H Eos # (Auto) 0.0 Baso # (Auto) 0.0 Immature Gran # (Auto) 0.01 H Absolute Nucleated RBC 0.00 Immature Gran % 0 Nucleated RBC % 0 PT INR APTT Sodium 136 Potassium 3.4 Chloride 98 Carbon Dioxide 24.9 Anion Gap 13 BUN 8 L Creatinine 0.6 Estim Creat Clear Calc 115.2 eGFR > 60 BUN/Creatinine Ratio 13 Glucose 80 Calculated Osmolality 269 L Calcium 8.9 Corrected Calcium 9.1 Phosphorus 3.6 Magnesium 2.0 Total Bilirubin 1.4 H AST 99 H ALT 31 Alkaline Phosphatase 180 H D Total Protein 7.2 Albumin 3.8 Globulin 3.4 Albumin/Globulin Ratio 1.1 L TSH Ur Collection Type Urine Color Urine Clarity Urine pH Ur Specific Kimber[place] Urine Protein Urine Glucose (UA) Urine Ketones Urine Blood Urine Nitrite Urine Bilirubin Urine Urobilinogen (Auto) Ur Leukocyte Esterase Urine RBC Urine WBC Ur Squamous Epith Cells Urine Bacteria Ur Culture Indicated? Urine Opiates Screen Urine Fentanyl Screen Ur Barbiturates Screen U Amphetamin/Meth Scrn U Benzodiazepines Scrn U Cocaine Metab Screen U Marijuana (THC) Screen Ethyl Alcohol Quality Measures Quality Measures none Assessment & Plan Assessment Current Active Medications: Generic Name Dose Route Start Last Admin Trade Name Freq PRN Reason Stop Dose Admin Acetaminophen 650 mg 04/12/25 22:52 Acetaminophen Supp 650 Mg Supp ME 05/12/25 22:51 Q4HR PRN PAIN SCALE 1-3 (mild Dextrose 50 ml 04/13/25 00:45 Dextrose 50%-Water Inj 50 Ml Syringe IVP 05/13/25 00:44 Q6HR PRN Blood sugar less than 80 Diazepam 5 mg 04/12/25 23:26 Diazepam Inj 5 Mg/Ml Vial 2 Ml IVP 04/17/25 23:25 Q1HR PRN CIWA 16-19 Diazepam 10 mg 04/12/25 23:26 04/13/25 00:17 Diazepam Inj 5 Mg/Ml Vial 2 Ml IVP 04/17/25 23:25 10 mg Q1HR PRN Administration CIWA 20-25 Diazepam 5 mg 04/12/25 23:26 Diazepam Inj 5 Mg/Ml Vial 2 Ml IVP 04/17/25 23:25 Q15M PRN RASS+1 Diazepam 2.5 mg 04/13/25 00:43 Diazepam Inj 5 Mg/Ml Vial 2 Ml IVP 04/18/25 00:42 Q2HR PRN CIWA SCORE 8-13 Folic Acid 1 mg 04/13/25 09:00 04/13/25 08:49 Folic Acid Inj 1 Mg/0.2 Ml IVP 05/13/25 08:59 1 mg QDAY STEFANIA Administration Heparin Sodium (Porcine) 5,000 unit 04/13/25 06:00 04/13/25 14:03 Heparin Sod Inj 5000 Unit/Ml Vial SC 04/27/25 05:59 5,000 unit Q8HR STEFANIA Administration Thiamine HCl 500 mg/ Sodium 105 mls @ 210 mls/hr 04/13/25 14:00 04/13/25 14:03 Chloride IV 04/20/25 13:59 210 mls/hr TID STEFANIA Administration Magnesium Hydroxide 30 ml 04/12/25 22:52 Milk Of Magnesia Susp 30 Ml Udc PO 05/12/25 22:51 QDAY PRN CONSTIPATION Pantoprazole Sodium 40 mg 04/12/25 23:00 04/13/25 08:48 Pantoprazole Inj 40 Mg Vial IVP 05/12/25 22:59 40 mg QDAY STEFANIA Administration Phenobarbital Sodium 65 mg 04/13/25 22:00 Phenobarbital Inj 130 Mg/1 Ml Vial IVP 04/27/25 21:59 Q8HR STEFANIA Plan 59-year-old male with alcohol use disorder, admitted from senior living with delirium tremens, now stabilized and downgraded from ICU for continued withdrawal management and phenobarbital taper. #Acute encephalopathy, secondary to #Alcohol withdrawal, and #Delirium tremens Patient presented with confusion, decreased mental status, and tremors. Urine Alcohol level <3. Urine toxicology negative. Head CT negative for acute hemorrhage, mass effect or midline shift. Received IV phenobarbital 750 mg loading dose in ED on 04/12 at 22:48. Initial CIWA score 18, peaking at 20. Passed bedside swallow screen. Plan: - Continue CIWA protocol with diazepam. - Phenobarbital 65 mg IV every 8 hours, taper per protocol and clinical response. - Thiamine IV 500mg 3x a day for 3 days to prevent Wernicke's Encephalopathy. - Folic acid 1 mg daily. - Regular diet. - Aspiration precaution. - Electrolyte monitoring (BMP/Mg/P) daily ? replenish as needed to support neurologic and cardiac stability. - Monitor neurologic status and CIWA scores closely. #Mild transaminitis Pattern suggests alcohol-related hepatocellular injury (AST:ALT >2), though values are only mildly elevated at this time. Plan: - Trend LFTs daily while inpatient. - If LFTs worsen or if patient develops abdominal pain or tenderness, obtain abdominal ultrasound to evaluate for hepatic or biliary pathology. - Monitor for signs of hepatic decompensation (jaundice, coagulopathy, encephalopathy). - Avoid hepatotoxic medications. - Continue thiamine and folate supplementation. Health maintenance: Dispo: med-tele Diet: regular Lines: Peripheral lines DVT prophylaxis: Subcu heparin CODE STATUS: Full code Patient plan of care was discussed with the senior resident, Dr. Daniel Chahal, and attending physician, Dr. Mas. Estephanie Vora, DO PGY-1
[2025-04-13] MEDS: PHENobarbital INJ 130 MG/1 ML VIAL 65 MG IVP (21:13)
[2025-04-14] VITALS (7 sets, daily range): BP systolic 113–136; BP diastolic 68–96; PULSE 71–92; RESP 17–97; TEMP 36.1–36.9; O2SAT 94–98; BMI 21.7
[2025-04-14] MEDS: PHENobarbital INJ 130 MG/1 ML VIAL 65 MG IVP ×3 (06:36→22:13)
[2025-04-14] MEDS: THIAMINE INJ 500 MG in SODIUM CHLORIDE 0.9% 100 ML 210 MG IV ×3 (06:36→22:16)
[2025-04-14 06:41] LABS: Basophils # (Auto) 0.1 Thou/mm3 (0.0-0.2); Basophils % (Auto) 1 % (0-2.5); Eosinophils # (Auto) 0.0 Thou/mm3 (0.0-0.5); Eosinophils % (Auto) 1 % (0-10); Hematocrit 42.0 % (41.0-53.0); Hemoglobin 14.3 g/dL (13.5-16.0); Immature Granulocytes Auto 0.01 Thou/mm3 (0.00-0.00); Lymphocytes # (Auto) 0.7 Thou/mm3 (1.0-4.8); Lymphocytes % (Auto) 16 % (10-50); Mean Corpuscular HGB Conc 34.0 g/dl (31.0-37.0); Mean Corpuscular Hemoglobin 34.2 pg (25.0-35.0); Mean Corpuscular Volume 101 fL (80-100); Monocytes # (Auto) 0.7 Thou/mm3 (0.0-0.8); Monocytes % (Auto) 17 % (0-12); Neutrophils # (Auto) 2.8 Thou/mm3 (1.8-7.7); Neutrophils % (Auto) 65 % (37-80); Nucleated Red Blood Cell # 0.00 Thou/mm3 (0.00-0.00); Nucleated Red Blood Cell % 0 /100 WBC (0); Platelet Count 175 Thou/mm3 (140-440); RDW Standard Deviation 46.0 fL (35.1-43.9); Red Blood Count 4.18 Miln/mm3 (4.50-5.90); White Blood Count 4.3 Thou/mm3 (3.8-10.6)
[2025-04-14] MEDS: HEPARIN SOD INJ 5000 UNIT/ML VIAL SC ×3 (06:45→22:12)
[2025-04-14 06:59] LABS: Alanine Aminotransferase 30 U/L (10-49); Albumin, Serum 3.6 gm/dL (3.5-5.0); Albumin/Globulin Ratio 1.0 (1.2-2.2); Alkaline Phosphatase 197 U/L (46-116); Anion Gap 10 (7-16); Aspartate Amino Transferase 75 U/L (0-34); BUN/Creatinine Ratio 17 Ratio (12-20); Bilirubin,Total 1.0 mg/dL (0.3-1.2); Blood Urea Nitrogen 10 mg/dL (9-23); Calcium 9.3 mg/dL (8.3-10.6); Calcium (Corrected) 9.6 mg/dL (8.5-10.1); Carbon Dioxide 26.7 mMol/L (20.0-31.0); Chloride 100 mMol/L (98-107); Creatinine (Component) 0.6 mg/dL (0.6-1.3); Estimated Creatinine Clearance 100.5 mL/min (>60); Globulin 3.5 gm/dL (2.3-3.5); Glucose 82 mg/dL (74-106); Magnesium 1.8 mg/dL (1.6-2.6); Osmolality,Calculated 271 (275-295); Phosphorous 2.7 mg/dL (2.4-5.1); Potassium 3.3 mMol/L (3.4-5.1); Sodium 137 mMol/L (136-145); Total Protein 7.1 gm/dL (5.7-8.2); eGFR > 60 See Note
[2025-04-14] MEDS: FOLIC ACID INJ 1 MG/0.2 ML IVP (10:00)
--- NOTE | 2025-04-14 10:33 | ESPR_ITS ---
<Statement entered by Kevin Mas MD - 04/26/25 08:44> I reviewed above note and agree with findings and plans. I have also personally examined the patient with medicine team and went over assessment and plan with medical team including engineer intern and resident physician. <Statement entered by Forest Chahal MD - 04/14/25 18:38> Patient was examined and case was reviewed with team including attending physician. Note reviewed, I agree with most of its contents and agree with the patient's care as documented by Dr. Vora Patient seen and evaluated at the bedside. No overnight events reported. CIWA this morning was around 8?10. He does endorse anxiety, mild tremors. Patient currently on CIWA protocol and phenobarbital. Plan is to taper off phenobarbital as patient's CIWA has continued to improve. Case discussed with my attending Dr. Tg Chahal MD PGY-2 Disclaimer: Despite multiple revisions, due to the dictation software being used, the document bellow may not be free of grammatical errors including phonetic/typographic errors. However, this does not deter from our commitment to providing health care in the patient's best interest in mind. Documentation for date of: 04/14/25 Subjective Subjective Interval history: Patient was evaluated at the bedside with no notable overnight events. Patient reports last alcoholic beverage was consumed two weeks ago. He states that he would have 2-3 drinks at a time. They deny any history of hospitalization for alcohol withdrawal. The patient does not report symptoms of nausea, vomiting, dizziness, or visual or tactile disturbances. However, they describe a headache, rated 8/10 in intensity, and endorse mild auditory disturbances and tremors. CIWA was 10 this morning. Exam Vital Signs Temp Pulse Resp BP Pulse Ox O2 Del Method O2 Flow Rate 97.8 F 74 18 136/90 H 94 L Room Air 2 04/14/25 04:12 04/14/25 04:12 04/14/25 04:12 04/14/25 04:12 04/14/25 04:12 04/14/25 04:12 04/13/25 04:15 Narrative Exam Physical Exam General: Awake and in no acute distress. Non-toxic appearing. HEENT: Normocephalic, atraumatic, mucous membranes moist. No nystagmus noted. Heart: Regular rate and rhythm, no murmurs. Lungs: Clear to auscultation with no wheezing or crackles. Abdomen: Soft, nondistended, nontender. No guarding or rebound tenderness. Neurologic: Alert and oriented x3, no gross neurological deficit, and patient able to move all 4 extremities. Extremities: No edema. Bilateral upper extremities with tremors. Skin: Multiple bruises and scabs noted on bilateral lower extremities. Objective Labs 04/14/25 05:21 04/14/25 05:21 Labs: Laboratory Results - last 24 hr 04/14/25 05:21 WBC 4.3 RBC 4.18 L Hgb 14.3 Hct 42.0 MCV 101 H MCH 34.2 MCHC 34.0 RDW Std Deviation 46.0 H Plt Count 175 D Neut % (Auto) 65 Lymph % (Auto) 16 [place] % (Auto) 17 H Eos % (Auto) 1 Baso % (Auto) 1 Neut # (Auto) 2.8 Lymph # (Auto) 0.7 L [place] # (Auto) 0.7 Eos # (Auto) 0.0 Baso # (Auto) 0.1 Immature Gran # (Auto) 0.01 H Absolute Nucleated RBC 0.00 Immature Gran % 0 Nucleated RBC % 0 Sodium 137 Potassium 3.3 L Chloride 100 Carbon Dioxide 26.7 Anion Gap 10 BUN 10 Creatinine 0.6 Estim Creat Clear Calc 100.5 eGFR > 60 BUN/Creatinine Ratio 17 Glucose 82 Calculated Osmolality 271 L Calcium 9.3 Corrected Calcium 9.6 Phosphorus 2.7 Magnesium 1.8 Total Bilirubin 1.0 AST 75 H ALT 30 Alkaline Phosphatase 197 H Total Protein 7.1 Albumin 3.6 Globulin 3.5 Albumin/Globulin Ratio 1.0 L Quality Measures Quality Measures none Assessment & Plan Assessment Current Active Medications: Generic Name Dose Route Start Last Admin Trade Name Freq PRN Reason Stop Dose Admin Acetaminophen 650 mg 04/12/25 22:52 Acetaminophen Supp 650 Mg Supp ME 05/12/25 22:51 Q4HR PRN PAIN SCALE 1-3 (mild Dextrose 50 ml 04/13/25 00:45 Dextrose 50%-Water Inj 50 Ml Syringe IVP 05/13/25 00:44 Q6HR PRN Blood sugar less than 80 Diazepam 5 mg 04/12/25 23:26 Diazepam Inj 5 Mg/Ml Vial 2 Ml IVP 04/17/25 23:25 Q1HR PRN CIWA 16-19 Diazepam 10 mg 04/12/25 23:26 04/13/25 00:17 Diazepam Inj 5 Mg/Ml Vial 2 Ml IVP 04/17/25 23:25 10 mg Q1HR PRN Administration CIWA 20-25 Diazepam 5 mg 04/12/25 23:26 Diazepam Inj 5 Mg/Ml Vial 2 Ml IVP 04/17/25 23:25 Q15M PRN RASS+1 Diazepam 2.5 mg 04/13/25 00:43 Diazepam Inj 5 Mg/Ml Vial 2 Ml IVP 04/18/25 00:42 Q2HR PRN CIWA SCORE 8-13 Folic Acid 1 mg 04/13/25 09:00 04/14/25 10:00 Folic Acid Inj 1 Mg/0.2 Ml IVP 05/13/25 08:59 1 mg QDAY STEFANIA Administration Heparin Sodium (Porcine) 5,000 unit 04/13/25 06:00 04/14/25 06:45 Heparin Sod Inj 5000 Unit/Ml Vial SC 04/27/25 05:59 5,000 unit Q8HR STEFANIA Administration Thiamine HCl 500 mg/ Sodium 105 mls @ 210 mls/hr 04/13/25 14:00 04/14/25 06:36 Chloride IV 04/20/25 13:59 210 mls/hr TID STEFANIA Administration Magnesium Hydroxide 30 ml 04/12/25 22:52 Milk Of Magnesia Susp 30 Ml Udc PO 05/12/25 22:51 QDAY PRN CONSTIPATION Pantoprazole Sodium 40 mg 04/12/25 23:00 04/14/25 09:14 Pantoprazole Inj 40 Mg Vial IVP 05/12/25 22:59 40 mg QDAY STEFANIA Administration Phenobarbital Sodium 65 mg 04/13/25 22:00 04/14/25 06:36 Phenobarbital Inj 130 Mg/1 Ml Vial IVP 04/27/25 21:59 65 mg Q8HR STEFANIA Administration Plan 59-year-old male with alcohol use disorder, admitted from [facility] with delirium tremens, now stabilized and downgraded from ICU for continued withdrawal management and phenobarbital taper. #Acute encephalopathy, secondary to #Alcohol withdrawal (improving) #Delirium tremens Patient presented with confusion, decreased mental status, and tremors. Urine Alcohol level <3. Urine toxicology negative. Head CT negative for acute hemorrhage, mass effect or midline shift. Received IV phenobarbital 750 mg loading dose in ED on 04/12 at 22:48. Initial CIWA score 18, peaking at 20. Passed bedside swallow screen. Plan: - Continue CIWA protocol with diazepam. - Phenobarbital 65 mg IV every 8 hours, taper per protocol and clinical response. - Thiamine IV 500mg 3x a day for 3 days to prevent Wernicke's Encephalopathy. - Folic acid 1 mg daily. - Regular diet. - Aspiration precaution. - Electrolyte monitoring (BMP/Mg/P) daily ? replenish as needed to support neurologic and cardiac stability. - Monitor neurologic status and CIWA scores closely. #Mild transaminitis (improving) Pattern suggests alcohol-related hepatocellular injury, though values are only mildly elevated at this time. Plan: - Trend LFTs daily while inpatient. - If LFTs worsen or if patient develops abdominal pain or tenderness, obtain abdominal ultrasound to evaluate for hepatic or biliary pathology. - Monitor for signs of hepatic decompensation (jaundice, coagulopathy, encephalopathy). - Avoid hepatotoxic medications. - Continue thiamine and folate supplementation. Health maintenance: Dispo: med-tele Diet: regular Lines: Peripheral lines DVT prophylaxis: Subcu heparin CODE STATUS: Full code Patient plan of care was discussed with the senior resident, Dr. Daniel Chahal, and attending physician, Dr. Mas. Estephanie Vora, DO PGY-1
--- NOTE | 2025-04-14 15:31 | PC.SS ---
SS follow up note: [facility] protocol, Patient will discharge back to [facility] when medically cleared.
--- NOTE | 2025-04-14 19:28 | PC.NURSE ---
notify pharmacy of unwitnessed waste approximately 1200
[2025-04-15] VITALS: BP 115/68; PULSE 96; RESP 19; TEMP 36.3; O2SAT 98
[2025-04-15 04:44] VITALS: BP 134/92; PULSE 69; RESP 19; TEMP 36.2; O2SAT 92
[2025-04-15] MEDS: THIAMINE INJ 500 MG in SODIUM CHLORIDE 0.9% 100 ML 210 MG IV ×3 (05:20→22:09)
[2025-04-15] MEDS: HEPARIN SOD INJ 5000 UNIT/ML VIAL SC ×3 (05:25→22:09)
[2025-04-15] MEDS: PHENobarbital INJ 130 MG/1 ML VIAL 65 MG IVP ×2 (05:25→22:09)
[2025-04-15] MEDS: ACETAMINOPHEN 325 MG TABLET 650 MG PO (05:40)
[2025-04-15 06:00] VITALS: BMI 22.3
[2025-04-15 07:00] LABS: Basophils # (Auto) 0.1 Thou/mm3 (0.0-0.2); Basophils % (Auto) 1 % (0-2.5); Eosinophils # (Auto) 0.1 Thou/mm3 (0.0-0.5); Eosinophils % (Auto) 1 % (0-10); Hematocrit 42.0 % (41.0-53.0); Hemoglobin 14.7 g/dL (13.5-16.0); Immature Granulocytes Auto 0.02 Thou/mm3 (0.00-0.00); Lymphocytes # (Auto) 1.0 Thou/mm3 (1.0-4.8); Lymphocytes % (Auto) 25 % (10-50); Mean Corpuscular HGB Conc 35.0 g/dl (31.0-37.0); Mean Corpuscular Hemoglobin 34.6 pg (25.0-35.0); Mean Corpuscular Volume 99 fL (80-100); Monocytes # (Auto) 0.8 Thou/mm3 (0.0-0.8); Monocytes % (Auto) 19 % (0-12); Neutrophils # (Auto) 2.1 Thou/mm3 (1.8-7.7); Neutrophils % (Auto) 53 % (37-80); Nucleated Red Blood Cell # 0.00 Thou/mm3 (0.00-0.00); Nucleated Red Blood Cell % 0 /100 WBC (0); Platelet Count 176 Thou/mm3 (140-440); RDW Standard Deviation 45.5 fL (35.1-43.9); Red Blood Count 4.25 Miln/mm3 (4.50-5.90); White Blood Count 3.9 Thou/mm3 (3.8-10.6)
[2025-04-15 07:17] LABS: Alanine Aminotransferase 31 U/L (10-49); Albumin, Serum 3.6 gm/dL (3.5-5.0); Albumin/Globulin Ratio 1.0 (1.2-2.2); Alkaline Phosphatase 203 U/L (46-116); Anion Gap 8 (7-16); Aspartate Amino Transferase 62 U/L (0-34); BUN/Creatinine Ratio 12 Ratio (12-20); Bilirubin,Total 0.7 mg/dL (0.3-1.2); Blood Urea Nitrogen 7 mg/dL (9-23); Calcium 9.1 mg/dL (8.3-10.6); Calcium (Corrected) 9.4 mg/dL (8.5-10.1); Carbon Dioxide 27.7 mMol/L (20.0-31.0); Chloride 99 mMol/L (98-107); Creatinine (Component) 0.6 mg/dL (0.6-1.3); Estimated Creatinine Clearance 100.5 mL/min (>60); Globulin 3.7 gm/dL (2.3-3.5); Glucose 97 mg/dL (74-106); Magnesium 1.5 mg/dL (1.6-2.6); Osmolality,Calculated 268 (275-295); Phosphorous 2.3 mg/dL (2.4-5.1); Potassium 3.7 mMol/L (3.4-5.1); Sodium 135 mMol/L (136-145); Total Protein 7.3 gm/dL (5.7-8.2); eGFR > 60 See Note
[2025-04-15 07:53] VITALS: BP 145/89; PULSE 82; RESP 18; TEMP 36.2; O2SAT 92
[2025-04-15] MEDS: Magnesium Sulfate 2 GM Ivpb 2 GM/50 ML BAG IV (09:00)
[2025-04-15] MEDS: FOLIC ACID INJ 1 MG/0.2 ML IVP (09:37)
[2025-04-15] MEDS: POT PHOS 15 mMol in NS 250 ML 15 MMOL/250 ML BAG 62.5 MMOL IV (09:37)
[2025-04-15 12:00] VITALS: BP 134/88; PULSE 78; RESP 18; TEMP 36.2; O2SAT 92
--- NOTE | 2025-04-15 13:21 | PC.NURSE ---
received call from Cherie Chahal from [facility] and gave her update regarding pt's POC, vs, labs and medications.
--- NOTE | 2025-04-15 14:26 | PC.SS ---
Patient Ruben Pearl is a 59 Year old male admitted for Alcohol Withdrawals. SS met with patient at bedside. to verify demographic information. Patient reports he lives alone. at [address] [place] [address] [place]. Patient is able to complete all ADL's. Patient does not utilize any source of DME to assist with ambulation. Patient reports his friend Aarti Dowd is his surrogate decision maker, however does not remember her contact info due to not having his phone on him. Patient is from [facility] and will be discharging back, SS confirmed with bedside officer. Discharge plan: [facility]
--- NOTE | 2025-04-15 15:32 | ESPR_ITS ---
<Statement entered by Kevin Mas MD - 04/26/25 08:45> I reviewed above note and agree with findings and plans. I have also personally examined the patient with medicine team and went over assessment and plan with medical team including web marketing intern and resident physician. <Statement entered by Jose Raul Huang MD - 04/15/25 15:40> Senior Resident Attestation: I supervised/discussed management plan with web marketing intern physician Dr. Vora, and was involved in the care of this patient. I personally saw and examined the patient and discussed the assessment and plan with the entire medicine team, including my attending. I agree with the assessment and plan as documented. Patient's CIWA score in 0-6 range, continue to titrate down phenobarbital, anticipate discharge tomorrow. Patient's care was discussed with attending physician, Dr. Mas. Jose Raul Huang MD PGY-3. Documentation for date of: 04/15/25 Subjective Subjective Interval history: Patient was seen at the bedside this morning. He reports feeling better overall, though he is still experiencing some tremors, headache, anxiety, agitation, and mild visual hallucinations. His CIWA score today is 6. The plan is to continue titrating down the phenobarbital. Anticipate discharge tomorrow if his condition remains stable. Exam Vital Signs Temp Pulse Resp BP Pulse Ox O2 Del Method O2 Flow Rate 97.2 F 78 18 134/88 H 92 L Room Air 2 04/15/25 12:00 04/15/25 12:04/15/25 12:04/15/25 12:04/15/25 12:04/15/25 12:04/13/25 04:15 Narrative Exam Physical Exam General: Awake and in no acute distress. Non-toxic appearing. HEENT: Normocephalic, atraumatic, mucous membranes moist. No nystagmus noted. Heart: Regular rate and rhythm, no murmurs. Lungs: Clear to auscultation with no wheezing or crackles. Abdomen: Soft, nondistended, nontender. No guarding or rebound tenderness. Neurologic: Alert and oriented x3, no gross neurological deficit, and patient able to move all 4 extremities. Extremities: No edema. Bilateral upper extremities with mild tremors. Skin: Multiple bruises and scabs noted on bilateral lower extremities. Objective Labs 04/15/25 06:25 04/15/25 06:25 Labs: Laboratory Results - last 24 hr 04/15/25 06:25 WBC 3.9 RBC 4.25 L Hgb 14.7 Hct 42.0 MCV 99 MCH 34.6 MCHC 35.0 RDW Std Deviation 45.5 H Plt Count 176 Neut % (Auto) 53 Lymph % (Auto) 25 [place] % (Auto) 19 H Eos % (Auto) 1 Baso % (Auto) 1 Neut # (Auto) 2.1 Lymph # (Auto) 1.0 [place] # (Auto) 0.8 Eos # (Auto) 0.1 Baso # (Auto) 0.1 Immature Gran # (Auto) 0.02 H Absolute Nucleated RBC 0.00 Immature Gran % 1 H Nucleated RBC % 0 Sodium 135 L Potassium 3.7 Chloride 99 Carbon Dioxide 27.7 Anion Gap 8 BUN 7 L Creatinine 0.6 Estim Creat Clear Calc 100.5 eGFR > 60 BUN/Creatinine Ratio 12 Glucose 97 Calculated Osmolality 268 L Calcium 9.1 Corrected Calcium 9.4 Phosphorus 2.3 L Magnesium 1.5 L Total Bilirubin 0.7 AST 62 H ALT 31 Alkaline Phosphatase 203 H Total Protein 7.3 Albumin 3.6 Globulin 3.7 H Albumin/Globulin Ratio 1.0 L Quality Measures Quality Measures none Assessment & Plan Assessment Current Active Medications: Generic Name Dose Route Start Last Admin Trade Name Freq PRN Reason Stop Dose Admin Acetaminophen 650 mg 04/12/25 22:52 Acetaminophen Supp 650 Mg Supp MS 05/12/25 22:51 Q4HR PRN PAIN SCALE 1-3 (mild Acetaminophen 650 mg 04/14/25 10:41 04/15/25 05:40 Acetaminophen 325 Mg Tablet PO 05/14/25 10:40 650 mg Q4HR PRN Administration PAIN SCALE 1-3 (mild Dextrose 50 ml 04/13/25 00:45 Dextrose 50%-Water Inj 50 Ml Syringe IVP 05/13/25 00:44 Q6HR PRN Blood sugar less than 80 Diazepam 5 mg 04/12/25 23:26 Diazepam Inj 5 Mg/Ml Vial 2 Ml IVP 04/17/25 23:25 Q1HR PRN CIWA 16-19 Diazepam 10 mg 04/12/25 23:26 04/13/25 00:17 Diazepam Inj 5 Mg/Ml Vial 2 Ml IVP 04/17/25 23:25 10 mg Q1HR PRN Administration CIWA 20-25 Diazepam 2.5 mg 04/13/25 00:43 Diazepam Inj 5 Mg/Ml Vial 2 Ml IVP 04/18/25 00:42 Q2HR PRN CIWA SCORE 8-13 Folic Acid 1 mg 04/13/25 09:00 04/15/25 09:37 Folic Acid Inj 1 Mg/0.2 Ml IVP 05/13/25 08:59 1 mg QDAY STEFANIA Administration Heparin Sodium (Porcine) 5,000 unit 04/13/25 06:00 04/15/25 13:49 Heparin Sod Inj 5000 Unit/Ml Vial SC 04/27/25 05:59 5,000 unit Q8HR STEFANIA Administration Thiamine HCl 500 mg/ Sodium 105 mls @ 210 mls/hr 04/15/25 14:00 04/15/25 13:49 Chloride IV 04/20/25 13:59 210 mls/hr TID STEFANIA Administration Magnesium Hydroxide 30 ml 04/12/25 22:52 Milk Of Magnesia Susp 30 Ml Udc PO 05/12/25 22:51 QDAY PRN CONSTIPATION Pantoprazole Sodium 40 mg 04/12/25 23:00 04/15/25 09:01 Pantoprazole Inj 40 Mg Vial IVP 05/12/25 22:59 40 mg QDAY STEFANIA Administration Phenobarbital Sodium 65 mg 04/15/25 21:00 Phenobarbital Inj 130 Mg/1 Ml Vial IVP 04/29/25 20:59 BID STEFANIA Plan 59-year-old male with alcohol use disorder, admitted from [facility] with delirium tremens, now stabilized and downgraded from ICU for continued withdrawal management and phenobarbital taper. #Acute encephalopathy, secondary to #Alcohol withdrawal (improving) #Delirium tremens (resolved) Patient presented with confusion, decreased mental status, and tremors. Urine Alcohol level <3. Urine toxicology negative. Head CT negative for acute hemorrhage, mass effect or midline shift. Received IV phenobarbital 750 mg loading dose in ED on 04/12 at 22:48. Initial CIWA score 18, peaking at 20. Passed bedside swallow screen. Plan: - Continue CIWA protocol with diazepam. - Phenobarbital 65 mg IV every 8 hours, taper per protocol and clinical response. - Thiamine IV 500mg 3x a day for 3 days to prevent Wernicke's Encephalopathy. - Folic acid 1 mg daily. - Regular diet. - Aspiration precaution. - Electrolyte monitoring (BMP/Mg/P) daily ? replenish as needed to support neurologic and cardiac stability. - Monitor neurologic status and CIWA scores closely. #Mild transaminitis (improving) Pattern suggests alcohol-related hepatocellular injury, though values are only mildly elevated at this time. Plan: - Trend LFTs daily while inpatient. - If LFTs worsen or if patient develops abdominal pain or tenderness, obtain abdominal ultrasound to evaluate for hepatic or biliary pathology. - Monitor for signs of hepatic decompensation (jaundice, coagulopathy, encephalopathy). - Avoid hepatotoxic medications. - Continue thiamine and folate supplementation. Health maintenance: Dispo: med-tele Diet: regular Lines: Peripheral lines DVT prophylaxis: Subcu heparin CODE STATUS: Full code Patient plan of care was discussed with the senior resident, , and attending physician, Dr. Mas. Estephanie Vora, DO PGY-1
[2025-04-15 16:00] VITALS: BP 112/74; PULSE 72; RESP 18; TEMP 36.2; O2SAT 92
[2025-04-15 20:00] VITALS: BP 132/84; PULSE 91; RESP 18; TEMP 36.8; O2SAT 94
[2025-04-16] VITALS: BP 126/82; PULSE 74; RESP 16; TEMP 36.8; O2SAT 96
[2025-04-16] MEDS: ACETAMINOPHEN 325 MG TABLET 650 MG PO (01:35)
[2025-04-16 04:00] VITALS: BP 115/86; PULSE 94; RESP 17; TEMP 36.6; O2SAT 95
[2025-04-16 05:04] VITALS: BMI 22.3
[2025-04-16 05:13] LABS: Basophils # (Auto) 0.1 Thou/mm3 (0.0-0.2); Basophils % (Auto) 1 % (0-2.5); Eosinophils # (Auto) 0.1 Thou/mm3 (0.0-0.5); Eosinophils % (Auto) 1 % (0-10); Hematocrit 37.8 % (41.0-53.0); Hemoglobin 12.8 g/dL (13.5-16.0); Immature Granulocytes Auto 0.03 Thou/mm3 (0.00-0.00); Lymphocytes # (Auto) 0.9 Thou/mm3 (1.0-4.8); Lymphocytes % (Auto) 21 % (10-50); Mean Corpuscular HGB Conc 33.9 g/dl (31.0-37.0); Mean Corpuscular Hemoglobin 33.9 pg (25.0-35.0); Mean Corpuscular Volume 100 fL (80-100); Monocytes # (Auto) 0.9 Thou/mm3 (0.0-0.8); Monocytes % (Auto) 21 % (0-12); Neutrophils # (Auto) 2.4 Thou/mm3 (1.8-7.7); Neutrophils % (Auto) 56 % (37-80); Nucleated Red Blood Cell # 0.00 Thou/mm3 (0.00-0.00); Nucleated Red Blood Cell % 0 /100 WBC (0); Platelet Count 168 Thou/mm3 (140-440); RDW Standard Deviation 45.4 fL (35.1-43.9); Red Blood Count 3.78 Miln/mm3 (4.50-5.90); White Blood Count 4.3 Thou/mm3 (3.8-10.6)
[2025-04-16 05:41] LABS: Alanine Aminotransferase 35 U/L (10-49); Albumin, Serum 3.5 gm/dL (3.5-5.0); Albumin/Globulin Ratio 1.1 (1.2-2.2); Alkaline Phosphatase 245 U/L (46-116); Anion Gap 10 (7-16); Aspartate Amino Transferase 67 U/L (0-34); BUN/Creatinine Ratio 15 Ratio (12-20); Bilirubin,Total 0.5 mg/dL (0.3-1.2); Blood Urea Nitrogen 9 mg/dL (9-23); Calcium 8.9 mg/dL (8.3-10.6); Calcium (Corrected) 9.3 mg/dL (8.5-10.1); Carbon Dioxide 25.4 mMol/L (20.0-31.0); Chloride 99 mMol/L (98-107); Creatinine (Component) 0.6 mg/dL (0.6-1.3); Estimated Creatinine Clearance 100.5 mL/min (>60); Globulin 3.2 gm/dL (2.3-3.5); Glucose 108 mg/dL (74-106); Magnesium 1.6 mg/dL (1.6-2.6); Osmolality,Calculated 267 (275-295); Phosphorous 3.2 mg/dL (2.4-5.1); Potassium 3.9 mMol/L (3.4-5.1); Sodium 134 mMol/L (136-145); Total Protein 6.7 gm/dL (5.7-8.2); eGFR > 60 See Note
[2025-04-16] MEDS: THIAMINE INJ 500 MG in SODIUM CHLORIDE 0.9% 100 ML 210 MG IV ×2 (05:50→14:28)
[2025-04-16] MEDS: HEPARIN SOD INJ 5000 UNIT/ML VIAL SC (05:50)
[2025-04-16 08:00] VITALS: BP 125/87; PULSE 76; RESP 17; TEMP 36.1; O2SAT 97
[2025-04-16] MEDS: FOLIC ACID 1 MG TABLET PO (09:16)
[2025-04-16] MEDS: PHENobarbital INJ 130 MG/1 ML VIAL 65 MG IVP (09:16)
--- NOTE | 2025-04-16 11:18 | ESDS_ITS ---
<Statement entered by Forest Chahal MD - 04/16/25 14:25> Patient was examined and case was reviewed with team including attending physician. Note reviewed, I agree with most of its contents and agree with the patient's care. Forest Chahal MD PGY-2 <Statement entered by Nissa Costa MD - 04/16/25 13:08> I attest that I was physically present for the evaluation, physical examination, lab and imaging review of the patient with the residents. I discussed the case with the residents and agree with the findings and plans of care as documented below. At bedside today, patient states she is feeling well and denies any new complaints. Vital signs are stable, saturating well on room air. Lab results are also stable. CIWA score has consistently downtrending. Phenobarbital dose has been tapered as well, will receive his last dose this morning. Continues to be on folic acid, thiamine and multivitamin. Denies any hallucinations this morning. Patient stable for discharge back to longterm center. Recommended to follow-up with PCP. Discussed in detail regarding alcohol cessation, patient agrees with the plan. Nissa Costa MD Planned Discharge Date 04/16/25 DS: Providers Provider Date of admission: 04/12/25 22:54 Primary care physician: Physician No Primary/Family Admitting Provider: Filiberto Fulton MD Attending Provider on Admission: Kevin Mas MD Attending Provider on DC: Nissa Costa MD Discharging Provider: Estephanie Vora DO Anticipated date of discharge: 04/16/25 DS: Diagnosis Problem List Completed Was Problem List Reviewed/Reconciled?: Yes Hospital Course Hospital Course Hospital course: 59-year-old male with no known past medical history presented on 04/12 with altered mental status, confusion, and tremors in the setting of alcohol withdrawal. In the ED, he was non-verbal with CIWA scores up to 20 and was admitted to the ICU for management of alcohol withdrawal syndrome progressing to delirium tremens. He was stabilized on a phenobarbital taper, later downgraded to the floor, and successfully weaned off phenobarbital. He remained clinically stable and was prepared for discharge with counseling on alcohol cessation and follow-up care. Patient is medically and physically stable for discharge. Diagnosis: #Acute encephalopathy #Alcohol withdrawal #Delirium tremens Discharge Plan: Follow up with primary care physician within 1 week of discharge Avoid consuming alcohol as this can be detrimental for overall health. Should your symptoms recur or worsen patient is instructed to return to the ED. Case discussed with my senior resident Dr. Daniel Chahal and my attending Dr. Costa. Estephanie Vora DO PGY 1 Status at Discharge Overall status at discharge: patient is back to baseline Time Spent with Patient Time attestation: Total time spent providing and/or coordinating discharge services: 36 min Time spent: Greater than 30 minutes Exam Vital Signs Temp Pulse Resp BP Pulse Ox O2 Del Method O2 Flow Rate 97.9 F 94 17 115/86 H 95 Room Air 2 04/16/25 04:00 04/16/25 04:00 04/16/25 04:00 04/16/25 04:00 04/16/25 04:00 04/16/25 04:00 04/13/25 04:15 Narrative Exam Physical Exam General: Awake and in no acute distress. Non-toxic appearing. HEENT: Normocephalic, atraumatic, mucous membranes moist. No nystagmus noted. Heart: Regular rate and rhythm, no murmurs. Lungs: Clear to auscultation with no wheezing or crackles. Abdomen: Soft, nondistended, nontender. No guarding or rebound tenderness. Neurologic: Alert and oriented x3, no gross neurological deficit, and patient able to move all 4 extremities. Extremities: No edema. No tremors. Skin: Multiple bruises and scabs noted on bilateral lower extremities. Discharge Plan Plan Patient Disposition: Senior Care/Court/Law Patient condition on transfer: Stable Care Plan Goals: Follow up with primary care physician within 1 week of discharge Avoid consuming alcohol as this can be detrimental for overall health. Should your symptoms recur or worsen patient is instructed to return to the ED. Prescriptions/Referrals Prescriptions/Med Rec: Discontinued naproxen 500 mg tablet 500 mg PO Q6H PRN (Reason: pain) Referrals: No Primary/Family,Physician [Primary Care Provider] - Patient/Caregiver Discharge Instructions Print Language: Irish Discharge Order Discharge Orders: Discharge (Routine); Ordered 04/16/25 Ordered By: Forest Chahal Quality Discharge Quality Measures none
[2025-04-16 12:00] VITALS: BP 129/94; PULSE 73; RESP 16; TEMP 36.1; O2SAT 96
== END 2025-04-16 15:32 | DRG 896 ==
LOC: SERX 22:45 → SERHOLD 23:56 → S2SX 04-13 01:22 → S3NX 04-13 17:46 → S3SX 04-14 23:43
PROVIDERS: Nurse Practitioner Family; Student in an Organized Health Care Education/Training Program; Admitting Provider Internal Medicine; Emergency Provider Emergency Medicine; Visit Provider Internal Medicine
DX: F10.131 Alcohol abuse with withdrawal delirium (principal); G92.8 Other toxic encephalopathy; E87.1 Hypo-osmolality and hyponatremia; R44.0 Auditory hallucinations; G93.40 Encephalopathy, unspecified; Y90.0 Blood alcohol level of less than 20 mg/100 ml; R74.01 Elevation of levels of liver transaminase levels; D64.9 Anemia, unspecified; E86.1 Hypovolemia; K70.10 Alcoholic hepatitis without ascites; F41.9 Anxiety disorder, unspecified; E63.9 Nutritional deficiency, unspecified; Z78.1 Physical restraint status
CPT/HCPCS: 36415; 70450; 71045; 80053; 80307; 80320; 81001; 83735; 84100; 84443; 85025; 85610; 85730; 87081; 93005; 96361; 96365; 96366; 96375; 96376; 99285; A4216; J1644; J2470; J2560; J3360; J3411; J3475; J3480; J3490; J7030; J7050; J7999; A9270; G0480